=== PATIENT | male | born 1955 | race Caucasian/White ===

== ENCOUNTER 2024-08-25 13:08 | Inpatient (IN) | payer MEDICARE, BC, SELFPAY ==
[2024-08-25] VITALS (9 sets, daily range): BP systolic 73–119; BP diastolic 50–79; BMI 26.1
[2024-08-25] MEDS: NSS 1000 IV (09:47)
--- NOTE | 2024-08-25 09:47 | ED.GENMED ---
History of Present Illness
<Fadia Schroeder PA-C - Last Filed: 08/25/24 11:43>
General
Chief Complaint: Rectal Bleeding
Source: patient
Exam Limitations: none
Time Seen by Provider: 08/25/24 09:30
Nursing documentation reviewed up to this point in time: agreed with
History of Present Illness
History of Present Illness:
Patient is a 69-year-old male history hypertension, hyperlipidemia, prostate cancer presenting to the emergency department for evaluation of rectal bleeding. Patient states that about 1 AM he got up from sleep and use the bathroom and had a
significant episode of rectal bleeding. He is unsure if there was associated diarrhea. He states that the toilet bowl was filled with bright red blood. He states that since 1 AM he has had about 12 episodes of rectal bleeding. Around 6 AM�he
states that he became nauseous and had a few episodes of vomiting, one with few specks of red blood.
He became lightheaded, dizzy with standing and had to hold onto the counter to prevent himself from falling. He came to the emergency department for further evaluation.
Patient denies any associated abdominal pain, fevers, chills, dysuria or hematuria. He does endorse very mild shortness of breath
No blood thinners.
No recent travel. No history of rectal bleeding.
Review of Systems
<Fadia Schroeder PA-C - Last Filed: 08/25/24 11:43>
Review of Systems
Allergies reviewed?: Yes
All Other Systems: ROS reviewed and negative except as documented in HPI and ROS
Phy Exam
<Fadia Schroeder PA-C - Last Filed: 08/25/24 11:43>
Physical Exam
Physical Exam:
Vitals: Borderline hypotensive, otherwise vital signs able. Afebrile
General: Patient is pale appearing, no acute distress
Skin: Warm and dry, no rashes or lesions. Pale
Head: Normocephalic, atraumatic
Eyes: Sclera nonicteric. EOMs intact. No nystagmus.
Throat: Protecting airway
Neck: Normal ROM, no cervical spine tenderness, no meningismus
Cardiac: Regular rate and rhythm, no murmurs.
Pulm: Normal respiratory effort, no wheezes, rales, rhonchi heard on exam.
Abdomen: Abdomen soft. No abdominal tenderness.
Rectal: No stool in vault dried blood around rectum with some bright red blood in vault. No visualized external hemorrhoids or fissures.
Extremities: No evidence of cyanosis or edema. Palpable DP pulse bilaterally
Neuro: AAOx3. Grossly intact.
Psychiatric: Normal affect.
Course
<Fadia Schroeder PA-C - Last Filed: 08/25/24 11:43>
Orders/Labs/Results
Orders:
Orders
08/25/24 09:33
Stool Culture Urgent
[place] Source: Feces/Stool
Specimen Description:
0.9% Sodium Chloride 1000 ml [Nss] 1,000 ml IV BOLUS
08/25/24 09:34
Cardiac Monitoring- Treatment ONCE
IV Insert/Care/Rem.- Treatment PRN
Pulse Ox/cont/shift [RESP] Stat
Quantity: 1
08/25/24 09:37
Electrocardiogram (*1) Urgent
Reason for Study: Vertigo / Dizzy
EKG- Treatment ONCE
08/25/24 09:42
Type+Screen Urgent
Complete Blood Count/With Diff Urgent
Comprehensive Metabolic Panel Urgent
PTT Urgent
Prothrombin Time Urgent
08/25/24 09:54
CT Angio Abd/Pelvis w/wo IV [CT Abd/pelvis Angio W/wo Iv] Urgent
Comment:
Reason For Exam: Painless rectal bleeding
0.9% Sodium Chloride 1000 ml [Nss] 1,000 ml IV BOLUS
08/25/24 10:07
ABO2 Urgent
BBK Wristband Number:
Associate notified that ABO2 has been ordered: [id number]
Date: 08/25/24
Time: 09:48
Chartered Wealth Manager ID: [id number]
Abnormal Lab Results
08/25/24
09:42
WBC 13.5 H 10^3/uL
(4.8-10.8)
RBC 4.40 L 10^6/uL
(4.70-6.10)
Hgb 12.6 L g/dL
(13.0-18.0)
Hct 38.3 L %
(39.0-52.0)
MCHC 32.9 L g/dL
(33.0-37.0)
Abs Immat Gran (auto) 0.1 H 10^3/uL
(0-0.05)
Absolute Neuts (auto) 10.5 H 10^3/uL
(1.4-6.5)
Neutrophils % 77.7 H %
(42.2-75.2)
Lymphocytes % 16.6 L %
(20.5-51.1)
PT 15.7 H Sec
(11.4-14.6)
APTT 23.2 L Sec
(23.4-35.0)
Carbon Dioxide 18 L mmol/L
(22-30)
BUN 24 H mg/dl
(9-20)
Glucose 232 H mg/dl
(70-99)
08/25/24 09:42
08/25/24 09:42
Vital Signs
Initial and Last Documented VS:
Initial Vital Signs
Temp Pulse Resp BP Pulse Ox
98.6 F 110 16 73/50 99
08/25/24 09:25 08/25/24 09:25 08/25/24 09:25 08/25/24 09:25 08/25/24 09:25
Last Documented Vital Signs
Temp Pulse Resp BP Pulse Ox
98.6 F 82 13 107/65 100
08/25/24 09:25 08/25/24 10:15 08/25/24 10:15 08/25/24 10:00 08/25/24 10:00
<Tuan Izquierdo MD - Last Filed: 08/25/24 10:28>
Orders/Labs/Results
Orders:
Orders
08/25/24 09:33
Stool Culture Urgent
[place] Source: Feces/Stool
Specimen Description:
0.9% Sodium Chloride 1000 ml [Nss] 1,000 ml IV BOLUS
08/25/24 09:34
Cardiac Monitoring- Treatment ONCE
IV Insert/Care/Rem.- Treatment PRN
Pulse Ox/cont/shift [RESP] Stat
Quantity: 1
08/25/24 09:37
Electrocardiogram (*1) Urgent
Reason for Study: Vertigo / Dizzy
EKG- Treatment ONCE
08/25/24 09:42
Type+Screen Urgent
Complete Blood Count/With Diff Urgent
Comprehensive Metabolic Panel Urgent
PTT Urgent
Prothrombin Time Urgent
08/25/24 09:54
CT Angio Abd/Pelvis w/wo IV [CT Abd/pelvis Angio W/wo Iv] Urgent
Comment:
Reason For Exam: Painless rectal bleeding
0.9% Sodium Chloride 1000 ml [Nss] 1,000 ml IV BOLUS
08/25/24 10:07
ABO2 Urgent
BBK Wristband Number:
Associate notified that ABO2 has been ordered: [id number]
Date: 08/25/24
Time: 09:48
Chartered Wealth Manager ID: [id number]
Abnormal Lab Results
08/25/24
09:42
WBC 13.5 H 10^3/uL
(4.8-10.8)
RBC 4.40 L 10^6/uL
(4.70-6.10)
Hgb 12.6 L g/dL
(13.0-18.0)
Hct 38.3 L %
(39.0-52.0)
MCHC 32.9 L g/dL
(33.0-37.0)
Abs Immat Gran (auto) 0.1 H 10^3/uL
(0-0.05)
Absolute Neuts (auto) 10.5 H 10^3/uL
(1.4-6.5)
Neutrophils % 77.7 H %
(42.2-75.2)
Lymphocytes % 16.6 L %
(20.5-51.1)
PT 15.7 H Sec
(11.4-14.6)
APTT 23.2 L Sec
(23.4-35.0)
Carbon Dioxide 18 L mmol/L
(22-30)
BUN 24 H mg/dl
(9-20)
Glucose 232 H mg/dl
(70-99)
08/25/24 09:42
08/25/24 09:42
Vital Signs
Initial and Last Documented VS:
Initial Vital Signs
Temp Pulse Resp BP Pulse Ox
98.6 F 110 16 73/50 99
08/25/24 09:25 08/25/24 09:25 08/25/24 09:25 08/25/24 09:25 08/25/24 09:25
Last Documented Vital Signs
Temp Pulse Resp BP Pulse Ox
98.6 F 82 13 107/65 100
08/25/24 09:25 08/25/24 10:15 08/25/24 10:15 08/25/24 10:00 08/25/24 10:00
<Fadia Schroeder PA-C - Last Filed: 08/25/24 11:43>
MDM/Problems Addressed
Differential Diagnosis Includes:
Not limited to: Diverticular bleed, internal hemorrhoid, external hemorrhoid, malignancy, etc.
MDM/Problems Addressed:
69-year-old male with history as documented presenting with multiple episodes of rectal bleeding. Does report 1 episode of vomiting with streaks of bright red blood. Patient reports lightheadedness, dizziness, mild shortness of breath. No fever,
abdominal pain, urinary symptoms. Patient initially hypotensive in triage although BP of 104/79 by my assessment. He is borderline tachycardic. Patient is afebrile. Physical exam as above. Patient does appear somewhat pale. Abdomen is soft and
nontender. Rectal exam shows no stool in vault although some bright red blood. No visualized hemorrhoid or fissure. Patient is perfusing well with palpable distal pulses. Cardio/pulmonary assessment unremarkable. Differential broad at this time
although given history concerning for significant episodes of rectal bleeding�will check CTA of abdomen/pelvis. Labs, type/screen pending. Patient did sign blood consent only for lifesaving measures. EKG obtained in triage shows normal sinus
rhythm without any acute signs of ischemia. Will closely monitor patient and reassess.
Chronic conditions affecting care:
Hypertension, hyperlipidemia, history of prostate cancer
Acute Exacerbation and/or Progression of Chronic Illness:
N/A
<Fadia Schroeder PA-C - Last Filed: 08/25/24 11:43>
*Radiology
Radiology exam reviewed: preliminary read by ED provider and radiology read reviewed (No active GI hemorrhage or other acute abnormalities)
*Pulse Oximetry
Patient hypoxic: no
*EKG
Interpreted by ED Provider?: Yes
EKG Intrepretation Date: 08/25/24
Interpretation: normal
Comparison EKG: changes noted
Heart Rate: 86
Rate: normal
Rhythm: sinus
Kennedy: normal axis
Interval: normal interval
QRS Pattern: normal QRS
Ischemia: no ischemia
*Senior Systems Architect Interpretation
Rate: normal
Interpretation: normal
Heart Rate: 94
Rhythm: sinus
*Critical Care Note
Total Time (30-74mins, 75-104mins- exclusive of procedures): Not Applicable
<Fadia Schroeder PA-C - Last Filed: 08/25/24 11:43>
Patient Management
Discussion with other providers: Hospitalist
Escalation/DeEscalation of care consider admission/obs:
Admit for hemoglobin trending/further monitoring
<Fadia Schroeder PA-C - Last Filed: 08/25/24 11:43>
Update Note
Update Note:
Update 10:21 AM: Labs noted. Hemoglobin of 12.6. Mild leukocytosis of 13.5. Elevated BUN and mild metabolic acidosis likely secondary to GI losses.
Update 11:28 AM: CT report reviewed. No active GI hemorrhage or other acute findings. Given patient history of greater than 10 episodes of bright red blood per rectum this morning and drop in hemoglobin from baseline�will admit patient for
hemoglobin trending/further monitoring. Patient accepted to hospitalist service in stable condition. Case seen with attending physician.
ED Attending Note
<Fadia Schroeder PA-C - Last Filed: 08/25/24 11:43>
-
Portions of this chart may have been created with voice recognition software.� Occasional wrong word or��sound alike� substitutions may have occurred due to the inherent limitations of voice recognition software.
<Tuan Izquierdo MD - Last Filed: 08/25/24 10:28>
ED Attending Note
Patient seen and examined by attending physician: Yes
ED Attending Note:
I have seen and evaluated the patient with a [id number] encounter. I have spoken to the advance practicer provider and involved in the medical history, the physical exam, medical decision making.
Evaluation and management service: agree unless noted differently below.
Results interpretation: agree unless noted differently below.
Focused HPI: 69-year-old male with a past medical history of hypertension, hyperlipidemia, prostate cancer who presents to the emergency room with his for evaluation of rectal bleeding. Patient reports that he was in his normal state of health
last night and then around 1 AM he felt that he had to have a bowel movement. He says he passed liquid stool that was essentially grossly bloody. He says that he has had roughly 10 episodes of bright red blood per rectum since. He had some nausea
and a couple episodes of nonbloody emesis. Came to the emergency room for assessment. Denies any significant abdominal pain. He says he has had some dizziness/lightheadedness. No chest pain or dyspnea. He denies being on blood thinners. He
denies similar symptoms before. He says his last colonoscopy was roughly 10 years ago he says he previously was told that he had diverticulosis and colonic polyp that was resected.
Physical exam: Awake alert not in distress. Tachycardic and hypertensive in triage�after IV fluids blood pressure improved to 107/65 with heart rate in the 80s. Rest of vitals normal. Slightly pale appearing. Rectal exam by CARLOS showed gross blood
in the rectal vault.
Medical Decision Makin-year-old male presents after multiple episodes of bright red blood per rectum over the past 10 hours. He is not on blood thinners. Hypotensive and tachycardic improved with fluids. Placed large-bore IV labs sent off
including a CBC and a CMP, coags, type and screen. Patient was consented for blood transfusion�he did note that he would only agree to blood transfusion in the case of life-threatening bleeding. Will plan for a CTA to rule out brisk bleed.
Reassess after the above.
Labs reviewed: CBC does show anemia of 12.6 which is roughly 2 point drop from his baseline. Platelets acceptable. CMP shows elevated BUN, mild metabolic acidosis could be from GI losses. Hyperglycemic. Awaiting CTA will plan for admission for
trending of hemoglobin and bleeding.
Discharge Plan
Departure
Patient Disposition: Admit
Date of Disposition: 08/25/24
Time of Disposition: 11:28
Presentation/result/management discussed w/ accepting MD/DO: Hospitalist
Discharge Problem:
Rectal bleeding
Prescriptions:
No Action
tamsulosin [Flomax] 0.4 mg Capsule
0.4 mg PO DAILY
ascorbic acid (vitamin C) [Vitamin C] 1,000 mg Tablet
1,000 mg PO DAILY
acetaminophen [Tylenol] 325 mg Tablet
650 mg PO Q4HPRN PRN (Reason: mild pain)
Tums 300 mg (750 mg) Tablet,Chewable
900 mg PO BIDPRN PRN (Reason: gerd)
famotidine [Pepcid] 20 mg Tablet
40 mg PO HS
calcium polycarbophil [FiberCon] 625 mg Tablet
625 mg PO DAILY
bismuth subsalicylate [Pepto-Bismol] 262 mg Tablet,Chewable
2 tab PO DAILYPRN PRN (Reason: gerd)
losartan 100 mg Tablet
100 mg PO DAILY
rosuvastatin [Crestor] 5 mg Tablet
5 mg PO DAILY
Visbiome 112.5 billion cell Capsule
1 cap PO DAILY
cyanocobalamin (vitamin B-12) 3,000 mcg Capsule
3,000 mcg PO DAILY
Referrals:
Henok Hanson MD [Family Provider] -
Interventions
Interventions:
*Risk Screen - Suicide Last Done: 08/25/24 09:40
*General Assessment Last Done: 08/25/24 09:40
*Neglect/Abuse Screening Last Done: 08/25/24 09:40
ED- Fall Risk Assessment Last Done: 08/25/24 09:40
*ED COVID-19 Vaccine History Last Done: 08/25/24 11:07
AD-Uzwqli-Hwniztmltm Assessment Last Done: 08/25/24 09:45
ED- Cardiac Assessment Last Done: 08/25/24 09:40
ED- Pulmonary Assessment Last Done: 08/25/24 09:40
Discharge Date and Time
Print Language: BHUTANESE
[2024-08-25 09:49] LABS: % Basophils 0.4 % (0-2); % Eosinophils 0.4 % (0-6); % Immature Granulocytes 0.5 % (0-0.5); % Lymphocytes 16.6 % (20.5-51.1); % Monocytes 4.4 % (1.7-9.3); % Neutrophils 77.7 % (42.2-75.2); Absolute Basophils 0.1 10^3/uL (0-0.2); Absolute Eosinophils 0.1 10^3/uL (0-0.7); Absolute Immature Granulocytes 0.1 10^3/uL (0-0.05); Absolute Lymphocytes 2.2 10^3/uL (1.2-3.4); Absolute Monocytes 0.6 10^3/uL (0.1-0.6); Absolute Neutrophils 10.5 10^3/uL (1.4-6.5); Hematocrit 38.3 % (39.0-52.0); Hemoglobin 12.6 g/dL (13.0-18.0); Mean Corp Hgb Conc. 32.9 g/dL (33.0-37.0); Mean Corpuscular Hgb 28.6 pg (27.0-31.0); Mean Platelet Volume 9.8 fL (7.4-10.4); Nucleated Red Blood Cells % 0 % (-); Platelet Count 199 10^3/uL (130-400); Red Cell Dist. Width 12.5 % (11.5-14.5); White Blood Cell Count 13.5 10^3/uL (4.8-10.8)
[2024-08-25 09:59] LABS: INR 1.22; PT 15.7 Sec (11.4-14.6)
[2024-08-25 10:00] LABS: APTT 23.2 Sec (23.4-35.0)
[2024-08-25 10:10] LABS: ALT (SGPT) 27 U/L (0-50); AST (SGOT) 21 U/L (17-59); Albumin 4.1 g/dl (3.5-5.0); Alkaline Phosphatase 59 U/L (38-126); Blood Urea Nitrogen 24 mg/dl (9-20); Calcium 9.9 mg/dl (8.4-10.2); Carbon Dioxide 18 mmol/L (22-30); Chloride 105 mmol/L (98-107); Glucose 232 mg/dl (70-99); Potassium 4.2 mmol/L (3.5-5.1); Sodium 140 mmol/L (135-145); Total Bilirubin 0.4 mg/dl (0.2-1.3); Total Protein 6.8 g/dl (6.3-8.2); eGFR > 60.00
--- NOTE | 2024-08-25 12:38 | HPS.HSE ---
Family Physician
-
Family Physician: Henok Hanson
Chief Complaint
-
rectal bleeding
History of Present Illness
69-year-old male with hypertension, hyperlipidemia, GERD, allergic rhinitis, H/O prostate cancer presenting to the hospital today with a complaint of rectal bleeding. Symptoms started near 1 AM overnight where he awoke from sleep to use the
restroom and had an episode of rectal bleeding. Unclear if there was diarrhea at that time but he states the toilet bowl was filled with bright red blood. Since 1 AM he has had roughly 12 episodes of rectal bleeding. Around 6 AM he became
nauseous with vomiting, states his vomitus had a few specks of blood. Developed lightheadedness and dizziness with standing which prompted him to come to the emergency department for further evaluation. Denies abdomen pain, fevers or chills,
urinary issues. Does not use blood thinners. He has had 4 previous colonoscopies for colon cancer screening, has had polyps seen s/p polypectomy and biopsy. Upon arrival to the ED was slightly tachycardic with soft blood pressure that improved
following IV fluids, otherwise stable and afebrile on room air. Labs with WBC 13.5, hemoglobin 12.6, PT 15.7, INR 1.22, APTT 23.2, BUN 24, bicarb 18. CT A/P with and without contrast showed probable renal cyst, hepatic steatosis, diverticulosis
without diverticulitis, and no obvious source of acute GI hemorrhage.
Medical History
Past Medical History
Past Medical History: Reports GERD, HTN and Hypercholesterolemia
Past Surgical History: Reports Orthopedic (Per surgery, knee replacement) and Other (Colonoscopy with biopsy, prostate biopsy x 2)
Social History
Tobacco: Non-smoker
Alcohol: Occasional
Drug: None
Family History
Family History: Not pertinent and Other (Father: Severe aortic stenosis, prostate cancer)
Allergies / Home Medications
Allergies reflects when Allergies were last updated in [employer].
Home Medications with original date entered in [employer]
Allergy/Medication List:
Allergies
Allergy/AdvReac Type Severity Reaction Status Date / Time
Penicillins Allergy Unknown Verified 08/25/24 09:30
Home Medications
Lactobac no.2-Bifidobac no.1-S. thermo 112.5 billion cell capsule (Visbiome) 1 cap PO DAILY 08/25/24
acetaminophen 325 mg tablet (Tylenol) 650 mg PO Q4HPRN PRN mild pain 08/25/24
ascorbic acid (vitamin C) 1,000 mg tablet (Vitamin C) 1,000 mg PO DAILY 08/25/24
bismuth subsalicylate 262 mg chewable tablet (Pepto-Bismol) 2 tab PO DAILYPRN PRN gerd 08/25/24
calcium carbonate (Tums) 900 mg PO BIDPRN PRN gerd 08/25/24
calcium polycarbophil 625 mg tablet (FiberCon) 625 mg PO DAILY 08/25/24
cyanocobalamin (vitamin B-12) 3,000 mcg capsule 3,000 mcg PO DAILY 08/25/24
famotidine 20 mg tablet (Pepcid) 40 mg PO HS 08/25/24
losartan 100 mg tablet 100 mg PO DAILY 08/25/24
rosuvastatin 5 mg tablet (Crestor) 5 mg PO DAILY 08/25/24
tamsulosin 0.4 mg capsule (Flomax) 0.4 mg PO DAILY 08/25/24
Review of Systems
-
History Source: Patient
A 12 point ROS was completed and negative except as noted: Yes
Constitutional: Reports No Symptoms
EENT: Reports No Symptoms
Respiratory: Reports No Symptoms
Cardiac: Reports No Symptoms
Abdomen/GI: Reports See HPI
: Reports No Symptoms
Musculoskeletal: Reports No Symptoms
Skin: Reports No Symptoms
Neurological: Reports No Symptoms
Endocrine: Reports No Symptoms
Hematologic/Lymphatic: Reports No Symptoms
Psych: Reports No Symptoms
Physical Exam
Vital Signs
Vital Signs
Temp Pulse Resp BP Pulse Ox
98.6 F 95 18 107/65 100
08/25/24 09:25 08/25/24 11:45 08/25/24 11:45 08/25/24 10:00 08/25/24 11:45
Physical Exam
General: Well Nourished, No Apparent Distress and Comfortable
HEENT: NormoCephalic, Anicteric, Moist mucous membranes and Atraumatic
Respiratory: Clear and Non Labored Respirations; No Accessory Resp Muscle Use
Cardiac: S1/S2 and Regular Rhythm; No Murmur, Rub, Gallop or Peripheral Edema
GI: Soft, Non Tender, Non Distended and Normal Bowel Sounds
Musculoskeletal: Clubbing, No Clubbing and Cyanosis
Skin: Warm and Dry; No Rash or Jaundice
Neuro: AO x 3, Nonfocal/grossly intact and Cranial Nerves Intact
Psych: Calm
Laboratory Results
-
08/25/24 09:42
08/25/24 09:42
Laboratory Results
PT 15.7 Sec (11.4-14.6) H 08/25/24 09:42
INR 1.22 08/25/24 09:42
APTT 23.2 Sec (23.4-35.0) L 08/25/24 09:42
Total Bilirubin 0.4 mg/dl (0.2-1.3) 08/25/24 09:42
AST 21 U/L (17-59) 08/25/24 09:42
ALT 27 U/L (0-50) 08/25/24 09:42
Alkaline Phosphatase 59 U/L (38-126) 08/25/24 09:42
Data Reviewed
-
Lab Data: Labs Reviewed by me, Discussed with Physician and Discussed with Patient
Impression/Plan
-
#Rectal bleeding
#Possible hematemesis
-Differential diagnosis include diverticular bleed; less likely brisk UGIB though cannot R/O
-Presented with rectal bleeding that started overnight, has recurred x 12
-Developed nausea and vomiting, states there may have been specks of blood in the vomitus
-Was initially hypotensive and tachycardic though improved readily with IV fluids
-Hemoglobin 12.6 on arrival, no recent records for hemoglobin baseline
-Type and screen, blood consent obtained to the patient only once for 'life-saving measures'
Plan
-Will start IV PPI twice daily for now due to possible hematemesis
-Continue to trend H/H, repeat this afternoon
-Maintain 2 large-bore IVs, active T&S, NPO status
-Avoid chemical DVT prophylaxis
-Continue with supportive IV fluids for now
-GI consult
#Leukocytosis
-No fevers or infectious symptoms at this time
-Suspect this is reactive to etiology of his bleeding
-Will trend CBC and temperature curve, defer against antibiotics for now
-Consider stool cultures if GI deems necessary
#Hypertension
-Home medications include losartan 100 mg
-Will hold losartan for now as BP was soft on arrival
#GERD/dyspepsia
-Home medications include bismuth, calcium carbonate, famotidine
-No known history of erosive esophagitis or Sewell's esophagus
-Will escalate PPI to twice daily IV for now as above
-States he has symptoms of GERD fairly consistently
-Would benefit from daily PPI at NH
#Prostate cancer
-Patient states he is currently following with urology, managed with watchful waiting
-Has not previously received chemotherapy or radiation
-Remains on tamsulosin
DVT prophylaxis: SCDs
Diet: NPO pending GI
CODE STATUS: Full code
I will be admitting Erick Ford to [facility] for GI bleeding of unclear origin. He is at high risk for ongoing morbidity will require intensive monitoring of his CBC and possible endoscopic intervention by gastroenterology. I have communicated
with the ED provider, kitchen runner in order to facilitate care for this patient.
--- NOTE | 2024-08-25 13:09 | CON.GI ---
Consultation
-
Date/Time Consultation Requested: 08/25/24 12.44 pm
Date/Time Consultation Performed: 08/25/24 1.10 pm
Requesting Provider: Quinn Escamilla DO
Performing Provider: Skyla Plascencia MD
Reason for Consultation: Rectal bleeding
Medical History
Chief Complaint / HPI
Chief Complaint: Rectal bleeding
History of Present Illness:
The patient is a 69 year old male with a PMH of hypertension, hyperlipidemia, GERD, allergic rhinitis, H/O prostate cancer who presented to ER this morning complaining from rectal bleeding. He reported that he had bloody stool movements starting
from this morning around 1.0 am and he had 10-12 episodes of rectal bleeding until 6.00 am. He reported that the color of his bowel movement was red-fresh colored and denied black/tarry stools. Additionally, the patient reported having nausea due
feeling lightheadedness and he vomited 3 times. Reported that his vomitus had a few specks of blood. The patient denies abdominal pain, previous similar episodes, chronic bowel disease but reports a possible lactose intolerance with daily products.
He denies taking aspirin, NSAI and any other blood thinner medication. He reported that he had 4 previous colonoscopies for colon cancer screening at the age of [age], 61 and has had polyps seen s/p polypectomy and diverticulosis.
Past Medical History
Past Medical History: GERD, HTN, Hypercholesterolemia and Other (prostate cancer no radiotherapy )
Past Surgical History: Other (orthopedic(knee arthroplasty, wrist surgery) )
Social History
Tobacco: Non-Smoker
Alcohol: Occasional
Drug: None
Personal:
Living: With Family
Employment: Retired
Family History
Family History: Reviewed & Not Pertinent
Allergies / Home Medications
Allergy/AdvReac Type Severity Reaction Status Date / Time
Penicillins Allergy Unknown Verified 08/25/24 09:30
�Medication �Instructions �Recorded
Lactobac no.2-Bifidobac no.1-S. 1 cap PO DAILY 08/25/24
thermo 112.5 billion cell capsule
(Visbiome)
acetaminophen 325 mg tablet 650 mg PO Q4HPRN PRN mild pain 08/25/24
(Tylenol)
ascorbic acid (vitamin C) 1,000 mg 1,000 mg PO DAILY 08/25/24
tablet (Vitamin C)
bismuth subsalicylate 262 mg 2 tab PO DAILYPRN PRN gerd 08/25/24
chewable tablet (Pepto-Bismol)
calcium carbonate (Tums) 900 mg PO BIDPRN PRN gerd 08/25/24
calcium polycarbophil 625 mg 625 mg PO DAILY 08/25/24
tablet (FiberCon)
cyanocobalamin (vitamin B-12) 3,000 mcg PO DAILY 08/25/24
3,000 mcg capsule
famotidine 20 mg tablet (Pepcid) 40 mg PO HS 08/25/24
losartan 100 mg tablet 100 mg PO DAILY 08/25/24
rosuvastatin 5 mg tablet (Crestor) 5 mg PO DAILY 08/25/24
tamsulosin 0.4 mg capsule (Flomax) 0.4 mg PO DAILY 08/25/24
Review of Systems
-
History Source: Patient
Constitutional: Reports No Symptoms
EENT: Reports No Symptoms
Respiratory: Reports No Symptoms
Cardiac: Reports No Symptoms
Abdomen/GI: Reports Bloody Stools
: Reports No Symptoms
Musculoskeletal: Reports No Symptoms
Skin: Reports No Symptoms
Neurological: Reports No Symptoms
Vital Signs
Temp Pulse Resp BP Pulse Ox
98.6 F 95 18 107/65 100
08/25/24 09:25 08/25/24 11:45 08/25/24 11:45 08/25/24 10:00 08/25/24 11:45
Physical Exam
Exam
General: Well Developed, Well Nourished and No Apparent Distress
HEENT: Normocephalic and Anicteric
Respiratory: Clear
Cardiac: S1/S2 and Regular Rhythm
GI: Soft, Non Tender, Non Distended and Other
Musculoskeletal: No Clubbing, No Cyanosis and No Edema
Skin: Warm
Neuro: Awake, Alert, Oriented and AO x 3
Psych: Calm
Results
WBC 13.5 10^3/uL (4.8-10.8) H 08/25/24 09:42
Hgb 12.6 g/dL (13.0-18.0) L 08/25/24 09:42
Hct 38.3 % (39.0-52.0) L 08/25/24 09:
MCV 87.0 fL (80.0-94.0) 08/25/24 09:42
Plt Count 199 10^3/uL (130-400) 08/25/24 09:
Absolute Neuts (auto) 10.5 10^3/uL (1.4-6.5) H 08/25/24 09:42
PT 15.7 Sec (11.4-14.6) H 08/25/24 09:42
INR 1.22 08/25/24:42
APTT 23.2 Sec (23.4-35.0) L 08/25/24 09:42
Sodium 140 mmol/L (135-145) 08/25/24 09:
Potassium 4.2 mmol/L (3.5-5.1) 08/25/24 09:42
Chloride 105 mmol/L (98-107) 08/25/24 09:42
Carbon Dioxide 18 mmol/L (22-30) L 08/25/24 09:42
BUN 24 mg/dl (9-20) H 08/25/24 09:42
Creatinine 1.0 mg/dL (0.7-1.3) 08/25/24 09:42
Calcium 9.9 mg/dl (8.4-10.2) 08/25/24 09:
Total Bilirubin 0.4 mg/dl (0.2-1.3) 08/25/24 09:42
AST 21 U/L (17-59) 08/25/24 09:42
ALT 27 U/L (0-50) 08/25/24 09:42
Alkaline Phosphatase 59 U/L (38-126) 08/25/24 09:42
Diagnostic Image Results:
Abd/Pelvis CTA 08/25/24
IMPRESSION:
1. No acute gastrointestinal hemorrhage is identified at CT.
2. Hepatic fatty infiltration.
3. Right kidney 2.2 cm hyperdense cyst as above, benign. Bilateral probable renal cysts as above.
4. Diverticulosis without diverticulitis.
5. Bilateral fat-containing inguinal hernias.
Prior GI Procedures:
EGD: Not known/ No record was found. Patient denies any previous EGD proceudure.
Colonoscopy:Patient had 4 colonoscopy in the past in [facility] with Dr Brennan
Assessment / Plan
-
Impression: The patient is a 69 year old male who presented to ER complaining from rectal bleeding and feeling lightheadedness. The patient had 10-12 episodes of red-fresh colored liquid bowel movements since 1.00 am until 6.00 am this morning. He
also reported that vomited 3 times and his vomit vomitus had a few specks of blood. Reports having GERD for a long time and taking 2 pills of famotidine 20 mg before bedtime with Tums to prevent burning sensation. The patient denies a similar
previous episode of GI bleeding. Denies taking any NSAI, aspirin or blood thinner. Denies any fever, chills, diarrhea. Denies abdominal pain but reports feeling discomfort on his lower abdominal area. He had 4 colonoscopy in the past and the last
colonoscopy was about 9 years ago without any significant finding expect diverticulosis. He denied any EGD procedure in the past. He was obtained an abdominal CT at ER admission which showed 'Diverticulosis without diverticulitis.'
Assessment/Plan:
#Hematochezia likely from diverticulosis
-Last BM around 6.15 am
-Hgb 12.6 on 08/25/24 and 14.3 on 12/17/18 : No recent hgb result to compare
-Maintain 2 large-bore peripheral gauge IVs
-Hgb follow up Q8H
-Monitor for now
-Started on clear liquid diet
-CT Abd/pelvis Angio: No evidence of active bleeding /shows diverticulosis
#Hematemesis? less likely upper GI bleeding
- Denies any active bleeding and reports a few specks of blood with his vomit
-Can not rule out possibility of Upper GI bleeding
-Hx of GERD/on famotidine
-Continue PPI IV BID
-
-
Thank you for consultation and allowing me to participate in the patient's care. Please call the transportation worker GI physician during the after hours with any questions or concerns.
[2024-08-25] MEDS: PROTONIX IV 80 MG IV (13:30)
[2024-08-25] MEDS: NSS (PRESERVATIVE FREE) 20 ML IV (13:30)
[2024-08-25] MEDS: LR 1000 IV (14:15)
[2024-08-25] MEDS: PROTONIX IV 40 MG IV (20:59)
[2024-08-25] MEDS: NSS (PRESERVATIVE FREE) 10 ML IV (21:00)
[2024-08-25] MEDS: PEPCID 40 MG PO (21:57)
[2024-08-25 23:17] LABS: Hematocrit 28.6 % (39.0-52.0); Hemoglobin 9.8 g/dL (13.0-18.0); Mean Corp Hgb Conc. 34.3 g/dL (33.0-37.0); Mean Corpuscular Hgb 29.3 pg (27.0-31.0); Mean Corpuscular Volume 85.4 fL (80.0-94.0); Platelet Count 154 10^3/uL (130-400); Red Blood Cell Count 3.35 10^6/uL (4.70-6.10); Red Cell Dist. Width 12.5 % (11.5-14.5); White Blood Cell Count 10.2 10^3/uL (4.8-10.8)
--- NOTE | 2024-08-26 | PTCARENOTE ---
Patient with large bloody bowel movement, blood pressure noted, repeat CBC completed, patient complains of dizziness, notified house [employer] order received
[2024-08-26 00:24] VITALS: BP 84/51
[2024-08-26 00:48] VITALS: BP 109/57
[2024-08-26 04:17] VITALS: BP 106/64
[2024-08-26] MEDS: LR 1000 IV (04:18)
[2024-08-26 05:43] LABS: % Basophils 0.2 % (0-2); % Eosinophils 0.5 % (0-6); % Immature Granulocytes 0.3 % (0-0.5); Absolute Lymphocytes 2.4 10^3/uL (1.2-3.4); Absolute Monocytes 0.8 10^3/uL (0.1-0.6); Absolute Neutrophils 5.3 10^3/uL (1.4-6.5); Hematocrit 30.4 % (39.0-52.0); Hemoglobin 9.9 g/dL (13.0-18.0); Mean Corp Hgb Conc. 32.6 g/dL (33.0-37.0); Mean Corpuscular Hgb 28.5 pg (27.0-31.0); Mean Corpuscular Volume 87.6 fL (80.0-94.0); Nucleated Red Blood Cells % 0 % (-); Platelet Count 139 10^3/uL (130-400); Red Blood Cell Count 3.47 10^6/uL (4.70-6.10); White Blood Cell Count 8.6 10^3/uL (4.8-10.8)
[2024-08-26 06:18] LABS: Blood Urea Nitrogen 29 mg/dl (9-20); Calcium 8.6 mg/dl (8.4-10.2); Carbon Dioxide 20 mmol/L (22-30); Chloride 108 mmol/L (98-107); Estimated Creatinine Clearance 93 ml/min; Glucose 127 mg/dl (70-99); Magnesium 1.7 mg/dl (1.6-2.3); Sodium 138 mmol/L (135-145); eGFR > 60.00
[2024-08-26 07:25] VITALS: BP 112/58
[2024-08-26] MEDS: FLOMAX 0.4 MG PO (08:17)
[2024-08-26] MEDS: NSS (PRESERVATIVE FREE) 10 ML IV ×2 (08:17→21:27)
[2024-08-26] MEDS: CRESTOR 5 MG PO (08:17)
[2024-08-26] MEDS: PROTONIX IV 40 MG IV ×2 (08:17→21:27)
--- NOTE | 2024-08-26 10:43 | W.PN.GI.CBS2 ---
Today's Communication / Plan
-
colonoscopy for tomorrow
Assessment / Plan
-
Impression: The patient is a 69 year old male who presented to ER complaining from rectal bleeding and feeling lightheadedness. The patient had 10-12 episodes of red-fresh colored liquid bowel movements at home on 08/25/24 before his hospital
admission during the midnight. He also reported that vomited 3 times and his vomit vomitus had a few specks of blood on the same day. Reported having GERD for a long time and taking 2 pills of famotidine 20 mg before bedtime with Tums to prevent
burning sensation. The patient denies a similar previous episode of GI bleeding. Denies taking any NSAI, aspirin or blood thinner. Denies any fever, chills, diarrhea. Denies abdominal pain but reports feeling discomfort on his lower abdominal
area. He had 4 colonoscopy in the past and the last colonoscopy was about 9 years ago without any significant finding expect diverticulosis. He denied any EGD procedure in the past. He was obtained an abdominal CT at ER admission which showed
'Diverticulosis without diverticulitis.' Hgb level of the patient was found 12.6 at the admission and follow up level showed 9.8. The patient had one episode of bloody BM yesterday on 08/25 and he started to feel dizzy and his BP was on the lower
side. Therefore he was given 1 U RBC transfusion. Follow hgb level resulted as 9.9 and the patient had another episode of bloody BM this morning on .
Assessment/Plan:
#Hematochezia likely from diverticulosis
-Had 2 bloody BM since admission and was given 1 U of RBC
-Hgb 12.6 on 08/25/24 and 9.9 after 1 U RBC transfusion:One bloody BM after transfusion
-Maintain 2 large-bore peripheral gauge IVs
-Hgb follow up Q8H
-Started on clear liquid diet
-CT Abd/pelvis Angio: No evidence of active bleeding /shows diverticulosis
-colonoscopy is planning for ongoing bloody BM for tomorrow
#Hematemesis? less likely upper GI bleeding
- Denies any active bleeding and reports a few specks of blood with his vomit before admission
-Can not rule out possibility of Upper GI bleeding
-Hx of GERD/on famotidine
-Continue PPI IV BID
Subjective
Subjective
Date of Service: August 26, 2024
The patient was seen in his bed reporting feeling better but reported 2 bloody bowel movements since admission to the hospital. Last BM was this morning and the BM was liquid and red-fresh colored.
Objective
Data Reviewed
Laboratory Data:
Laboratory Results
08/26/24 05:31
Laboratory Results
PT 15.7 Sec (11.4-14.6) H 08/25/24 09:42
INR 1.22 08/25/24 09:42
APTT 23.2 Sec (23.4-35.0) L 08/25/24 09:42
Magnesium 1.7 mg/dl (1.6-2.3) 08/26/24 05:31
Total Bilirubin 0.4 mg/dl (0.2-1.3) 08/25/24 09:42
AST 21 U/L (17-59) 08/25/24 09:42
ALT 27 U/L (0-50) 08/25/24 09:42
Alkaline Phosphatase 59 U/L (38-126) 08/25/24 09:42
Vital Signs and I&O:
Vital Signs
Temp Pulse Resp BP Pulse Ox
98.1 F 69 18 112/58 97
08/26/24 07:25 08/26/24 07:25 08/26/24 07:25 08/26/24 07:25 08/26/24 07:25
I&O
08/25/24 08/26/24 08/27/24
06:59 06:59 06:59
Intake Total 2420 / 2420
Output Total 150 / 150
Balance 2270 / 2270
Physical Exam
Physical Exam
HEENT: Anicteric and Moist mucous membranes
Cardiology: Normal Sinus Rhythm, S1 and S2
Pulmonary: Clear
GI: Soft, Non Distended and Non Tender
Extremities: No Edema and Warm
Neuro: Non Focal
--- NOTE | 2024-08-26 11:09 | W.PN.HOSP.TC ---
Today's Communication/Plan
-
clears for now
IVF
PPI
Trend h/h
monitor stools
Assessment / Plan
Assessment / Plan
#Rectal bleeding
#Possible hematemesis
#Acute blood loss anemia due to GI bleeding
-Differential diagnosis include diverticular bleed; less likely brisk UGIB though cannot R/O
-Developed nausea and vomiting, states there may have been specks of blood in the vomitus
-Was initially hypotensive and tachycardic though improved readily with IV fluids
-Hemoglobin 12.6 on arrival, no recent records for hemoglobin baseline
-Type and screen, blood consent obtained to the patient only once for 'life-saving measures'
Plan
-Will start IV PPI twice daily for now due to possible hematemesis
-Continue to trend H/H, repeat this afternoon. s/p 1u of PRBC so far
-Maintain 2 large-bore IVs, active T&S,
-Avoid chemical DVT prophylaxis
-cont with clears. If repeat episode of bleeding then plan might be for inpatient C-scope.
-GI consult
#Leukocytosis
-No fevers or infectious symptoms at this time
-Suspect this is reactive to etiology of his bleeding
-Will trend CBC and temperature curve, defer against antibiotics for now
#Hypertension Primary
-Home medications include losartan 100 mg
-Will hold losartan for now as BP was soft on arrival
#GERD/dyspepsia
-Home medications include bismuth, calcium carbonate, famotidine
-No known history of erosive esophagitis or Sewell's esophagus
-Will escalate PPI to twice daily IV for now as above
-States he has symptoms of GERD fairly consistently
-Would benefit from daily PPI at [place]
#Prostate cancer
-Patient states he is currently following with urology, managed with watchful waiting
-Has not previously received chemotherapy or radiation
-Remains on tamsulosin
DVT prophylaxis: SCDs
Anticipated Discharge: 24 - 48 hours
Subjective/Interval History
-
Date of Service: August 26, 2024
had episode of BRBPR x 2
received PRBC overnight
no abd pain or nausea or vomiting or lightheadness
Objective Data
-
Labs:
Laboratory Results
08/25/24 08/26/24 08/26/24
23:00 05:31 12:00
WBC 10.2 8.6
Hgb 9.8 L D 9.9 L Pending
Hct 28.6 L 30.4 L Pending
Plt Count 154 D 139
Sodium 138
Potassium 4.0
Chloride 108 H
Carbon Dioxide 20 L
BUN 29 H
Creatinine 0.8
Glucose 127 H
Calcium 8.6
Vital Signs:
Vital Signs
Temp Pulse Resp BP Pulse Ox
98.1 F 69 18 112/58 97
08/26/24 07:25 08/26/24 07:25 08/26/24 07:25 08/26/24 07:25 08/26/24 07:25
I&O
08/25/24 08/26/24 08/27/24
06:59 06:59 06:59
Intake Total 2420 / 2420
Output Total 150 / 150
Balance 2270 / 2270
Physical Exam
-
General: Well Developed and No Apparent Distress
HEENT: Normocephalic, Atraumatic and Moist Mucous Membranes
Respiratory: Clear to Auscultation
Cardiac: Regular Rhythm and S1/S2; Negative Murmur, Rub or Gallop
GI: Soft, Nontender, Nondistended and Normal Bowel Sounds; Negative Organomegaly
Rectal: Deferred by Provider
Musculoskeletal: No Clubbing, No Cyanosis and No Edema
Skin: Negative Rash
Neuro: Awake, Alert, AO x 3, No Motor Deficits and Nonfocal/Grossly Intact
Psych: Calm
Data Reviewed
-
Total Time Spent with Patient (in minutes): 52
[2024-08-26 12:19] LABS: Hematocrit 29.9 % (39.0-52.0)
--- NOTE | 2024-08-26 12:42 | CM ---
CM met with pt and spouse bedside
They reside in a [facility] [facility], 14 steps to 2nd floor
Pt is independent with his ADLs, no ADs, drives+
Has crutches from a prior injury
Denies financial insecurities
Rx coverage through [employer], card on chart
PCP- Henok Hanson
Rx- [facility]
Pt is independent throughout room
Anticipate no dc needs
Discharge Disposition- home, no needs anticipated
--- NOTE | 2024-08-26 15:20 | W.PN.UPDATE ---
Update Note
Progress Note Update
Return to patient's room to discuss whether or not to proceed with colonoscopy tomorrow. Since this morning, when he is urinated he has passed small amount of clots which he states are from the rectum, no bowel movements. His hemoglobin has
improved to 10. He is still reluctant to proceed as he does not want to have to repeat a screening colonoscopy as an outpatient as I will be unable to remove any polyps if I see them on his colonoscopy, is removing a large polyp could cause
bleeding, further confusing the picture of the bleeding source. I suspect that his bleeding has slowed down and has probably stopped, passing some old clots. Typically, just prepping for the colonoscopy will stop the bleeding.
Plan to have patient consume half a bowel prep with hopes that this will completely clear him out, and stop any ongoing bleeding and clean out old blood from his colon. If he continues to have large-volume hematochezia despite this have a bowel
prep, we will go onto complete a full bowel prep and plan for colonoscopy tomorrow.
[2024-08-26 15:33] VITALS: BP 134/66
[2024-08-26] MEDS: NULYTELY SOLUTION 2 LITERS PO ×2 (16:52→21:27)
[2024-08-26] MEDS: PEPCID 40 MG PO (21:27)
[2024-08-26 23:06] VITALS: BP 116/60
[2024-08-27] VITALS (7 sets, daily range): BP systolic 12–149; BP diastolic 61–72
[2024-08-27 07:40] LABS: % Basophils 0.2 % (0-2); % Eosinophils 0.2 % (0-6); % Immature Granulocytes 0.5 % (0-0.5); % Lymphocytes 31.9 % (20.5-51.1); % Monocytes 6.5 % (1.7-9.3); % Neutrophils 60.7 % (42.2-75.2); Absolute Lymphocytes 2.7 10^3/uL (1.2-3.4); Absolute Monocytes 0.6 10^3/uL (0.1-0.6); Absolute Neutrophils 5.2 10^3/uL (1.4-6.5); Hematocrit 21.9 % (39.0-52.0); Hemoglobin 7.5 g/dL (13.0-18.0); Mean Corp Hgb Conc. 34.2 g/dL (33.0-37.0); Mean Corpuscular Hgb 30.1 pg (27.0-31.0); Mean Platelet Volume 10.4 fL (7.4-10.4); Nucleated Red Blood Cells % 0 % (-); Platelet Count 122 10^3/uL (130-400); Red Blood Cell Count 2.49 10^6/uL (4.70-6.10); Red Cell Dist. Width 12.9 % (11.5-14.5); White Blood Cell Count 8.5 10^3/uL (4.8-10.8)
[2024-08-27 07:51] LABS: Blood Urea Nitrogen 19 mg/dl (9-20); Carbon Dioxide 22 mmol/L (22-30); Chloride 103 mmol/L (98-107); Estimated Creatinine Clearance 93 ml/min; Glucose 122 mg/dl (70-99); Potassium 4.2 mmol/L (3.5-5.1); Sodium 134 mmol/L (135-145); eGFR > 60.00
[2024-08-27] MEDS: PROTONIX IV 40 MG IV ×2 (08:17→21:06)
[2024-08-27] MEDS: CRESTOR 5 MG PO (08:17)
[2024-08-27] MEDS: NSS (PRESERVATIVE FREE) 10 ML IV ×2 (08:17→21:06)
[2024-08-27] MEDS: FLOMAX 0.4 MG PO (08:17)
--- NOTE | 2024-08-27 10:25 | W.PN.HOSP.TC ---
Today's Communication/Plan
-
Dispo-monitor on regular diet. monitor BP. Plan for tentative dc later
Assessment / Plan
Assessment / Plan
#Rectal bleeding
#Possible hematemesis
#Acute blood loss anemia due to GI bleeding
-Differential diagnosis include diverticular bleed; less likely brisk UGIB though cannot R/O
-Developed nausea and vomiting, states there may have been specks of blood in the vomitus
-Was initially hypotensive and tachycardic though improved readily with IV fluids
-Hemoglobin 12.6 on arrival, no recent records for hemoglobin baseline. Hgb at 7.6
-Continue to trend H/H, repeat this afternoon. s/p 1u of PRBC so far
-Maintain 2 large-bore IVs, active T&S,
-Avoid chemical DVT prophylaxis
-Status post colonoscopy with diverticulosis in the entire colon. Mild diverticulosis in the sigmoid colon. There was evidence of recent bleeding from the diverticular opening. Status post intervention with clipping. Nonbleeding internal
hemorrhoids. Repeat colonoscopy in 6 months.
-d/w with GI recommending IV iron x 1 dose today.
-GI consult
#Leukocytosis
-No fevers or infectious symptoms at this time
-Suspect this is reactive to etiology of his bleeding
-Will trend CBC and temperature curve, defer against antibiotics for now
#Hypertension Primary
-Home medications include losartan 100 mg
-Probably can be restarted in 24h.
#GERD/dyspepsia
-Home medications include bismuth, calcium carbonate, famotidine
-No known history of erosive esophagitis or Sewell's esophagus
-Will escalate PPI to twice daily IV for now as above
-States he has symptoms of GERD fairly consistently
-Would benefit from daily PPI at [place]
#Prostate cancer
-Patient states he is currently following with urology, managed with watchful waiting
-Has not previously received chemotherapy or radiation
-Remains on tamsulosin
DVT prophylaxis: SCDs
Dispo-monitor on regular diet. monitor BP. Plan for tentative dc later
Anticipated Discharge: Within 24 hours
Subjective/Interval History
-
Date of Service: August 27, 2024
seen post colonoscopy
deneis lightheadedness or diazines
denies abd pain
Objective Data
-
Labs:
Laboratory Results
08/27/24 08/27/24
06:46 10:24
WBC 8.5
Hgb 7.5 L D Pending
Hct 21.9 L Pending
Plt Count 122 L
Sodium 134 L
Potassium 4.2
Chloride 103
Carbon Dioxide 22
BUN 19
Creatinine 0.8
Glucose 122 H
Calcium 8.0 L
Vital Signs:
Vital Signs
Temp Pulse Resp BP Pulse Ox
98.0 F 85 18 122/61 100
08/27/24 10:00 08/27/24 10:12 08/27/24 10:12 08/27/24 10:00 08/27/24 10:12
I&O
08/26/24 08/27/24 08/28/24
06:59 06:59 06:59
Intake Total 2420 / 2420 540 / 540
Output Total 150 / 150
Balance 2270 / 2270 540 / 540
Physical Exam
-
General: Well Developed and No Apparent Distress
HEENT: Normocephalic, Atraumatic and Moist Mucous Membranes
Respiratory: Clear to Auscultation
Cardiac: Regular Rhythm and S1/S2; Negative Murmur, Rub or Gallop
GI: Soft, Nontender, Nondistended and Normal Bowel Sounds; Negative Organomegaly
Rectal: Deferred by Provider
Musculoskeletal: No Clubbing, No Cyanosis and No Edema
Skin: Negative Rash
Neuro: Awake, Alert, AO x 3, No Motor Deficits and Nonfocal/Grossly Intact
Psych: Calm
Data Reviewed
-
Total Time Spent with Patient (in minutes): 51
[2024-08-27 11:10] LABS: Hematocrit 22.2 % (39.0-52.0); Hemoglobin 7.6 g/dL (13.0-18.0)
[2024-08-27] MEDS: FERRLECIT 110 MG IV (14:50)
[2024-08-27] MEDS: PEPCID 40 MG PO (21:06)
[2024-08-28] VITALS (9 sets, daily range): BP systolic 114–153; BP diastolic 55–73
[2024-08-28 05:57] LABS: Blood Urea Nitrogen 17 mg/dl (9-20); Calcium 8.3 mg/dl (8.4-10.2); Carbon Dioxide 25 mmol/L (22-30); Chloride 104 mmol/L (98-107); Estimated Creatinine Clearance 93 ml/min; Glucose 108 mg/dl (70-99); Potassium 3.8 mmol/L (3.5-5.1); Sodium 137 mmol/L (135-145); eGFR > 60.00
[2024-08-28 06:11] LABS: % Basophils 0.4 % (0-2); % Eosinophils 1.1 % (0-6); % Immature Granulocytes 0.7 % (0-0.5); % Monocytes 7.5 % (1.7-9.3); % Neutrophils 61.3 % (42.2-75.2); Absolute Eosinophils 0.1 10^3/uL (0-0.7); Absolute Immature Granulocytes 0.1 10^3/uL (0-0.05); Absolute Lymphocytes 2.6 10^3/uL (1.2-3.4); Absolute Monocytes 0.7 10^3/uL (0.1-0.6); Absolute Neutrophils 5.6 10^3/uL (1.4-6.5); Hematocrit 18.9 % (39.0-52.0); Hemoglobin 6.4 g/dL (13.0-18.0); Mean Corp Hgb Conc. 33.9 g/dL (33.0-37.0); Mean Corpuscular Hgb 29.8 pg (27.0-31.0); Mean Corpuscular Volume 87.9 fL (80.0-94.0); Mean Platelet Volume 10.2 fL (7.4-10.4); Nucleated Red Blood Cells % 0 % (-); Platelet Count 122 10^3/uL (130-400); Red Blood Cell Count 2.15 10^6/uL (4.70-6.10); Red Cell Dist. Width 13.1 % (11.5-14.5); White Blood Cell Count 9.1 10^3/uL (4.8-10.8)
--- NOTE | 2024-08-28 06:28 | W.PN.UPDATE ---
Update Note
Progress Note Update
AM labs drawn, patient states he feels tired. Critical value received. Hgb 6.4, one unit PRBC's ordered.
--- NOTE | 2024-08-28 07:33 | W.PN.HOSP.TC ---
Addendum entered and electronically signed by Jordan Donaldson MD 08/28/24 14:28:
Patient with 2 episode of bright red blood per the rectum today so far. Denies abdominal pain, nausea or vomiting. Denies lightheaded and dizziness. Patient currently resting in bed. Tolerated lunch. BP stable. No tachycardia.
Hemoglobin of 6.4 this morning and received 1 unit of PRBC. Hemoglobin after PRBC at 7.2. Will transfuse additional unit of PRBC. Will ask GI to reevaluate. Recheck h/h after PRBC
d/w with RN
d/w with spouse at bedside in details
Will need to be monitored overnight.
Original Note:
Today's Communication/Plan
-
transfuse prbc
repeat H/H
BP improved
Assessment / Plan
Assessment / Plan
#Possible hematemesis
#Acute blood loss anemia due to diverticular bleed
-Developed nausea and vomiting, states there may have been specks of blood in the vomitus
-Was initially hypotensive and tachycardic though improved readily with IV fluids
-Hemoglobin 12.6 on arrival, no recent records for hemoglobin baseline.
-Continue to trend H/H, repeat this afternoon. Hgb at 6.4 plan for additional unit of PRBC today.
-Maintain 2 large-bore IVs, active T&S,
-Avoid chemical DVT prophylaxis
-Status post colonoscopy with diverticulosis in the entire colon. Mild diverticulosis in the sigmoid colon. There was evidence of recent bleeding from the diverticular opening. Status post intervention with clipping. Nonbleeding internal
hemorrhoids. Repeat colonoscopy in 6 months.
-s/p IV iron.
-GI signed off
#Leukocytosis
-No fevers or infectious symptoms at this time
-Suspect this is reactive to etiology of his bleeding
-Will trend CBC and temperature curve, defer against antibiotics for now
#Hypertension Primary
-Home medications include losartan 100 mg
-can be restarted
#GERD/dyspepsia
-Home medications include bismuth, calcium carbonate, famotidine
-No known history of erosive esophagitis or Sewell's esophagus
-States he has symptoms of GERD fairly consistently
-Would benefit from daily PPI at DC
#Prostate cancer
-Patient states he is currently following with urology, managed with watchful waiting
-Has not previously received chemotherapy or radiation
-Remains on tamsulosin
#Mild thrombocytopenia
-monitor for now. Not on heparin
DVT prophylaxis: SCDs
Anticipated Discharge: Today
Subjective/Interval History
-
Date of Service: August 28, 2024
Feeling better
no further bowel movements
overnight hgb at 6.4 awaiting PRBC
Objective Data
-
Labs:
Laboratory Results
08/28/24
05:13
WBC 9.1
Hgb 6.4 L*
Hct 18.9 L*
Plt Count 122 L
Sodium 137
Potassium 3.8
Chloride 104
Carbon Dioxide 25
BUN 17
Creatinine 0.8
Glucose 108 H
Calcium 8.3 L
Vital Signs:
Vital Signs
Temp Pulse Resp BP Pulse Ox
98.2 F 92 18 149/72 98
08/27/24 23:25 08/27/24 23:25 08/27/24 23:25 08/27/24 23:25 08/27/24 23:25
I&O
08/27/24 08/28/24 08/29/24
06:59 06:59 06:59
Intake Total 540 / 540 1919
Balance 540 / 540 1919
Physical Exam
-
General: Well Developed and No Apparent Distress
HEENT: Normocephalic, Atraumatic and Moist Mucous Membranes
Respiratory: Clear to Auscultation
Cardiac: Regular Rhythm and S1/S2; Negative Murmur, Rub or Gallop
GI: Soft, Nontender, Nondistended and Normal Bowel Sounds; Negative Organomegaly
Rectal: Deferred by Provider
Musculoskeletal: No Clubbing, No Cyanosis and No Edema
Skin: Negative Rash
Neuro: Awake, Alert, AO x 3, No Motor Deficits and Nonfocal/Grossly Intact
Psych: Calm
[2024-08-28] MEDS: CRESTOR 5 MG PO (08:58)
[2024-08-28] MEDS: FLOMAX 0.4 MG PO (08:58)
[2024-08-28] MEDS: NSS (PRESERVATIVE FREE) 10 ML IV (08:59)
[2024-08-28] MEDS: PROTONIX IV 40 MG IV (08:59)
[2024-08-28 14:07] LABS: Hematocrit 21.3 % (39.0-52.0); Hemoglobin 7.2 g/dL (13.0-18.0)
--- NOTE | 2024-08-28 14:48 | W.PN.GI.CBS2 ---
Addendum entered and electronically signed by Macy Head DO 08/28/24 18:11:
Patient seen and examined independently of [employer]. I agree with her note with my additions below
Erick is a 69-year-old male with history of GERD, prostate cancer who came in with rectal bleeding suspected diverticular based on the painless nature and significant volume with multiple episodes where he was initially hypotensive and tachycardic
in the emergency room. Had a CTA that was without evidence of active bleeding. He underwent colonoscopy with Dr. Schaeffer on 08/27/2024 where she found some blood and suspected area of diverticulosis that was oozing and was clipped. On admission
his hemoglobin was 12.6 which dropped to 9.8. Yesterday prior to scope he was 7.5 and was having bleeding throughout the prep. This morning hemoglobin 6.4 had 1 unit of blood and on repeat 7.2. Has received another unit of blood for total of 3
during this admission. He had 3 episodes of rectal bleeding today 08/28/2024. He is hemodynamically stable. He is actually hypertensive. He is starting to feel little weak.
Suspect persistent diverticular bleeding. Currently not bleeding enough to warrant CT angio. Hopefully it will stop overnight. Low threshold for IMU/ICU. Monitor. Bedrest as these bleeds can be massive and if he syncopized as he could hurt
himself.
If it does not stop we will reprep him if it is not enough for CT angio. Clear liquids are fine
Original Note:
Today's Communication / Plan
-
s/p colonoscopy with clip on tic-- most likely lower source he did have vomiting with speck of blood but BUN stable
some drop in hbg to 6.4 this AM
no stools for 29 hours then 3 stool with red blood last 2 hours with concern for diverticular re bleed
if persists consider CTA (per review with Dr. Champagne would do first) if + then angio vs repeat colon (if prep needed pt request miralax/gatorade)
-monitor outout
-Maintain 2 large-bore peripheral gauge IVs
-Hgb follow up Q8H
-decrease to NPO
cont PPI
Assessment / Plan
-
Impression: The patient is a 69 year old male who presented to ER complaining from rectal bleeding and feeling lightheadedness with multiple bloody stools since admission. He initially had CTA that was neg then colon with bleeding from TIC with
clip. Initially did well then increased bleeding 29 hours after colon. hbg 12.6 on admission with drop to 6.4-- total 3 units transfused
Laboratory Tests
08/26/24 08/27/24 08/27/24
12:06 06:46 11:00
Hgb 10.0 L 7.5 L D 7.6 L
08/28/24 08/28/24
05:13 13:44
Hgb 6.4 L* 7.2 L
s/p transfusion 1 unit 08/26 and 08/28 2 units
08/27 colonoscopy - The examined portion of the ileum was normal.
- Diverticulosis in the entire examined colon.
- Mild diverticulosis in the sigmoid colon. There was
evidence of recent bleeding from the diverticular
opening. Clips (MR conditional) were placed. Clip
signals collection technician: [employer].
- Non-bleeding internal hemorrhoids.
- No specimens collected.
#Hematochezia likely from diverticulosis s/p colon with clip of tic
#symptomatic anemia
# mild thrombocytopenia
#Hematemesis? less likely upper GI bleeding
#GERD
# prostate CA no prior radiation
PLAN:
s/p colonoscopy with clip on tic-- most likely lower source he did have vomiting with speck of blood but BUN stable
some drop in hbg to 6.4 this AM
no stools for 29 hours then 3 stool with red blood last 2 hours with concern for diverticular re bleed
if persists consider CTA (per review with Dr. Champagne would do first) if + then angio vs repeat colon (if prep needed pt request miralax/gatorade)
-monitor outout
-Maintain 2 large-bore peripheral gauge IVs
-Hgb follow up Q8H
-decrease to NPO
cont PPI
Subjective
Subjective
Date of Service: August 28, 2024
3 bloody stool last 2 hours , on low residue diet last at lunch now NPO
Objective
Data Reviewed
Laboratory Data:
Laboratory Results
08/28/24 13:44
08/28/24 05:13
Laboratory Results
PT 15.7 Sec (11.4-14.6) H 08/25/24 09:42
INR 1.22 08/25/24 09:42
APTT 23.2 Sec (23.4-35.0) L 08/25/24 09:42
Magnesium 1.7 mg/dl (1.6-2.3) 08/26/24 05:31
Total Bilirubin 0.4 mg/dl (0.2-1.3) 08/25/24 09:42
AST 21 U/L (17-59) 08/25/24 09:42
ALT 27 U/L (0-50) 08/25/24 09:42
Alkaline Phosphatase 59 U/L (38-126) 08/25/24 09:42
Vital Signs and I&O:
Vital Signs
Temp Pulse Resp BP Pulse Ox
98.0 F 94 18 114/55 99
08/28/24 12:52 08/28/24 12:52 08/28/24 12:52 08/28/24 12:52 08/28/24 12:52
I&O
08/27/24 08/28/24 08/29/24
06:59 06:59 06:59
Intake Total 540 / 540 1919 / 1919 250 / 250
Balance 540 / 540 1919 / 1920 250 / 250
Physical Exam
Physical Exam
HEENT: Anicteric and Moist mucous membranes
Cardiology: Normal Sinus Rhythm
Pulmonary: Clear
GI: Soft, Non Distended and Non Tender
Rectal: Other (noted large volume red blood in toilet in room)
Extremities: No Edema
Neuro: Non Focal
[2024-08-28 20:19] LABS: Hematocrit 23.6 % (39.0-52.0); Hemoglobin 7.9 g/dL (13.0-18.0)
[2024-08-28] MEDS: PEPCID 40 MG PO (21:01)
[2024-08-28] MEDS: NSS 1000 IV (21:02)
[2024-08-29 05:52] LABS: % Basophils 0.4 % (0-2); % Eosinophils 2.6 % (0-6); % Immature Granulocytes 0.8 % (0-0.5); % Lymphocytes 27.1 % (20.5-51.1); % Monocytes 9.1 % (1.7-9.3); Absolute Eosinophils 0.2 10^3/uL (0-0.7); Absolute Immature Granulocytes 0.1 10^3/uL (0-0.05); Absolute Lymphocytes 2.1 10^3/uL (1.2-3.4); Absolute Monocytes 0.7 10^3/uL (0.1-0.6); Absolute Neutrophils 4.6 10^3/uL (1.4-6.5); Hematocrit 21.8 % (39.0-52.0); Hemoglobin 7.1 g/dL (13.0-18.0); Mean Corp Hgb Conc. 32.6 g/dL (33.0-37.0); Mean Corpuscular Hgb 29.2 pg (27.0-31.0); Mean Corpuscular Volume 89.7 fL (80.0-94.0); Mean Platelet Volume 9.7 fL (7.4-10.4); Nucleated Red Blood Cells % 0.4 % (-); Platelet Count 111 10^3/uL (130-400); Red Blood Cell Count 2.43 10^6/uL (4.70-6.10); Red Cell Dist. Width 14.2 % (11.5-14.5); White Blood Cell Count 7.7 10^3/uL (4.8-10.8)
[2024-08-29 07:07] LABS: Blood Urea Nitrogen 18 mg/dl (9-20); Calcium 7.5 mg/dl (8.4-10.2); Carbon Dioxide 21 mmol/L (22-30); Chloride 107 mmol/L (98-107); Estimated Creatinine Clearance 106 ml/min; Glucose 106 mg/dl (70-99); Potassium 3.4 mmol/L (3.5-5.1); Sodium 138 mmol/L (135-145); eGFR > 60.00
[2024-08-29 07:49] VITALS: BP 128/71
[2024-08-29 09:04] LABS: Iron 37 ug/dl (49-181); Magnesium 1.8 mg/dl (1.6-2.3)
[2024-08-29 09:12] LABS: Percent Saturation 14 % (20-50); Total Iron Binding Capacity 260 ug/dl (261-462)
[2024-08-29 09:21] LABS: Vitamin D, 25-OH*** 17.5 ng/mL (30-80)
[2024-08-29] MEDS: PROTONIX IV 40 MG IV (09:25)
[2024-08-29] MEDS: NSS (PRESERVATIVE FREE) 10 ML IV (09:25)
[2024-08-29] MEDS: CRESTOR 5 MG PO (09:25)
[2024-08-29] MEDS: KCL 40 MEQ PO (09:25)
[2024-08-29] MEDS: FLOMAX 0.4 MG PO (09:25)
[2024-08-29 09:39] LABS: Ferritin 84.9 ng/ml (17.9-464.0)
[2024-08-29 09:53] LABS: Vitamin B12 626 pg/ml (239-931)
--- NOTE | 2024-08-29 11:13 | W.PN.GI.CBS2 ---
Addendum entered and electronically signed by Macy Head DO 08/29/24 11:20:
give one dose of IV iron
Original Note:
Today's Communication / Plan
-
- Okay for out of bed, hemoglobin check at 3 PM, for liquid diet.
-- Please let me know if he has any significant lower GI output or becomes clinically symptomatic with lightheadedness or dizziness
Assessment / Plan
-
Impression: The patient is a 69 year old male who presented to ER complaining from rectal bleeding and feeling lightheadedness with multiple bloody stools since admission. He initially had CTA that was neg then colon with bleeding from TIC with
clip. Initially did well then increased bleeding 29 hours after colon. hbg 12.6 on admission with drop to 6.4-- total 3 units transfused
Laboratory Tests
08/26/24 08/27/24 08/27/24
12:06 06:46 11:00
Hgb 10.0 L 7.5 L D 7.6 L
08/28/24 08/28/24
05:13 13:44
Hgb 6.4 L* 7.2 L
s/p transfusion 1 unit 08/26 and 08/28 2 units
08/27 colonoscopy - The examined portion of the ileum was normal.
- Diverticulosis in the entire examined colon.
- Mild diverticulosis in the sigmoid colon. There was
evidence of recent bleeding from the diverticular
opening. Clips (MR conditional) were placed. Clip
radiology ct technologist: [employer].
- Non-bleeding internal hemorrhoids.
- No specimens collected.
#Hematochezia likely from diverticulosis s/p colon with clip of tic
#symptomatic anemia
# mild thrombocytopenia
#Hematemesis? less likely upper GI bleeding
#GERD
# prostate CA no prior radiation
PLAN:
08/29/2024 - 3 blood BMs yesterday between 1-3pm then small less blood more stool at 9pm 08/28
08/28 6.4 --> 1 unit --> 7.2 --1 unit --> 7.9 --> 08/29: 7.1
s/p colonoscopy with clip on tic- 08/27
Repeat hemoglobin this evening. Okay for full liquid diet. If hemoglobin stable in the morning go back to low residue diet
no stools for 29 hours then 3 stool with red blood last 2 hours with concern for diverticular re bleed
if becomes significant or persists consider CTA
- patient ok for OOB/shower - told him if he feels lightheaded in anyway - stay in bed
-monitor output
-Maintain 2 large-bore peripheral gauge IVs
-Hgb follow up Q12 or more frequently if he clinically bleeds or gets lightheaded or dizzy
cont PPI
Subjective
Subjective
Date of Service: August 29, 2024
Patient had to 3 bloody bowel movements yesterday between the hours of 1 and 3 PM. No bowel movements until 9 PM which was much less volume. He is no longer weak dizzy or lightheaded.
Objective
Data Reviewed
Laboratory Data:
Laboratory Results
08/29/24 05:41
08/29/24 05:41
Laboratory Results
PT 15.7 Sec (11.4-14.6) H 08/25/24 09:42
INR 1.22 08/25/24 09:42
APTT 23.2 Sec (23.4-35.0) L 08/25/24 09:42
Magnesium 1.8 mg/dl (1.6-2.3) 08/29/24 05:41
Total Bilirubin 0.4 mg/dl (0.2-1.3) 08/25/24 09:42
AST 21 U/L (17-59) 08/25/24 09:42
ALT 27 U/L (0-50) 08/25/24 09:42
Alkaline Phosphatase 59 U/L (38-126) 08/25/24 09:42
Vital Signs and I&O:
Vital Signs
Temp Pulse Resp BP Pulse Ox
98.3 F 90 16 128/71 100
08/29/24 07:49 08/29/24 07:49 08/29/24 07:49 08/29/24 07:49 08/29/24 07:49
I&O
08/28/24 08/29/24 08/30/24
06:59 06:59 06:59
Intake Total 1919 2780 / 2780
Output Total 800 / 800
Balance 1919 / 1979
Physical Exam
Physical Exam
HEENT: Anicteric
GI: Soft, Non Distended and Non Tender
Extremities: No Edema
Neuro: Non Focal
[2024-08-29 11:17] VITALS: BMI 26.1
--- NOTE | 2024-08-29 11:38 | W.PN.HOSP.TC ---
Today's Communication/Plan
-
One unit of blood
Watch for any more bleeding
Assessment / Plan
Assessment / Plan
69-year-old male with bright red blood per rectum
CVS: S1-S2 normal
Chest: CTA B/L
Abdomen: Soft, NT / Bowel sounds present
Extremities: No edema
# Bleeding per rectum
Acute blood loss anemia secondary to GI bleed
Was initially hypotensive and tachycardic improved
Hemoglobin was 12.6 on arrival went down to 6.4
Status post colonoscopy 08/27/2024 showed diverticulosis in the entire colon status post clipping, also found nonbleeding internal hemorrhoids
Status post IV iron. Continue p.o. iron
Status post PRBCs-3 units. Order 1 more unit today 08/29/2024
Follow H&H and transfuse as needed
# Hypokalemia-replace
# Hypertension-hold losartan with bleeding
# History of GERD/dyspepsia
History of erosive esophagitis and Sewell's esophagus
On bismuth, calcium carbonate and famotidine as outpatient
PPI
# History of prostate cancer-follows with urology managed with watchful waiting
Continue Flomax
# Hyperlipidemia-continue statin
# Vitamin D deficiency-replace
# Mild thrombocytopenia
# DVT prophylaxis-SCDs
D/W Rn at bed side
D/W GI
Anticipated Discharge: Within 24 hours
Subjective/Interval History
-
Date of Service: August 29, 2024
Objective Data
-
Labs:
Laboratory Results
08/29/24
05:41
WBC 7.7
Hgb 7.1 L
Hct 21.8 L
Plt Count 111 L
Sodium 138
Potassium 3.4 L
Chloride 107
Carbon Dioxide 21 L
BUN 18
Creatinine 0.7
Glucose 106 H
Calcium 7.5 L
Vital Signs:
Vital Signs
Temp Pulse Resp BP Pulse Ox
98.3 F 90 16 128/71 100
08/29/24 07:49 08/29/24 07:49 08/29/24 07:49 08/29/24 07:49 08/29/24 07:49
I&O
08/28/24 08/29/24 08/30/24
06:59 06:59 06:59
Intake Total 1919 2780 / 278
Output Total 800 / 800
Balance 1919 / 1979
[2024-08-29 11:45] VITALS: BP 132/66
[2024-08-29 12:05] VITALS: BP 121/66
[2024-08-29 13:56] VITALS: BP 130/71
[2024-08-29] MEDS: FERRLECIT 110 MG IV (14:08)
[2024-08-29] MEDS: FEOSOL 325 MG PO (14:08)
[2024-08-29] MEDS: DRISDOL (VITAMIN D2) 50000 UNITS PO (14:09)
[2024-08-29 15:01] VITALS: BP 142/66
[2024-08-29 17:17] LABS: Hematocrit 24.4 % (39.0-52.0); Hemoglobin 8.3 g/dL (13.0-18.0)
[2024-08-29] MEDS: NSS IV ×2 (19:43)
[2024-08-29] MEDS: PEPCID 40 MG PO (21:01)
[2024-08-29 23:33] VITALS: BP 121/60
[2024-08-30 07:20] LABS: Blood Urea Nitrogen 11 mg/dl (9-20); Calcium 8.4 mg/dl (8.4-10.2); Carbon Dioxide 20 mmol/L (22-30); Chloride 107 mmol/L (98-107); Estimated Creatinine Clearance 93 ml/min; Glucose 120 mg/dl (70-99); Sodium 140 mmol/L (135-145); eGFR > 60.00
[2024-08-30 07:46] VITALS: BP 137/75
[2024-08-30] MEDS: PROTONIX IV 40 MG IV (08:20)
[2024-08-30] MEDS: NSS (PRESERVATIVE FREE) 10 ML IV (08:20)
[2024-08-30] MEDS: CRESTOR 5 MG PO (08:24)
[2024-08-30] MEDS: VITAMIN D3 (cholecalciferol) 25 MCG PO (08:24)
[2024-08-30] MEDS: FEOSOL 325 MG PO (08:24)
[2024-08-30] MEDS: FLOMAX 0.4 MG PO (08:24)
[2024-08-30] MEDS: CLARITIN PO (08:44)
[2024-08-30 09:28] LABS: Hematocrit 27.7 % (39.0-52.0); Hemoglobin 9.5 g/dL (13.0-18.0); Mean Corp Hgb Conc. 34.3 g/dL (33.0-37.0); Mean Corpuscular Hgb 30.1 pg (27.0-31.0); Mean Corpuscular Volume 87.7 fL (80.0-94.0); Mean Platelet Volume 10.4 fL (7.4-10.4); Platelet Count 165 10^3/uL (130-400); Red Blood Cell Count 3.16 10^6/uL (4.70-6.10); Red Cell Dist. Width 14.8 % (11.5-14.5); White Blood Cell Count 8.9 10^3/uL (4.8-10.8)
--- NOTE | 2024-08-30 11:29 | W.PN.HOSP.TC ---
Today's Communication/Plan
-
Advance diet to solids
Watch hemoglobin or any bleeding
Assessment / Plan
Assessment / Plan
69-year-old male with bright red blood per rectum
CVS: S1-S2 normal
Chest: CTA B/L
Abdomen: Soft, NT / Bowel sounds present
Extremities: No edema
# Bleeding per rectum
Acute blood loss anemia secondary to GI bleed
Was initially hypotensive and tachycardic improved
Hemoglobin was 12.6 on arrival went down to 6.4
Status post colonoscopy 08/27/2024 showed diverticulosis in the entire colon status post clipping, also found nonbleeding internal hemorrhoids
Status post IV iron. Continue p.o. iron
Status post PRBCs-4 units.
Hb 9.5 today. This is likely falsely high.
No more gina bleeding, brown stool
# Hypokalemia-replaced
# Hypertension-hold losartan with bleeding
# History of GERD/dyspepsia
History of erosive esophagitis and Sewell's esophagus
On bismuth, calcium carbonate and famotidine as outpatient
PPI
# History of prostate cancer-follows with urology managed with watchful waiting
Continue Flomax
# Hyperlipidemia-continue statin
# Vitamin D deficiency-replace
# Mild thrombocytopenia
# DVT prophylaxis-SCDs
D/W Rn at bed side
D/W GI
Anticipated Discharge: Within 24 hours
Subjective/Interval History
-
Date of Service: August 30, 2024
Objective Data
-
Labs:
Laboratory Results
08/30/24
06:12
WBC 8.9
Hgb 9.5 L
Hct 27.7 L
Plt Count 165 D
Sodium 140
Potassium 4.0
Chloride 107
Carbon Dioxide 20 L
BUN 11
Creatinine 0.8
Glucose 120 H
Calcium 8.4
Vital Signs:
Vital Signs
Temp Pulse Resp BP Pulse Ox
97.8 F 73 17 137/75 96
08/30/24 07:46 08/30/24 07:46 08/30/24 07:46 08/30/24 07:46 08/30/24 07:46
I&O
08/29/24 08/30/24 08/31/24
06:59 06:59 06:59
Intake Total 2780 / 2780 2169 / 2169
Output Total 800 / 800
Balance 1979
--- NOTE | 2024-08-30 11:30 | W.PN.GI.CBS2 ---
Today's Communication / Plan
-
Low residue diet, if hemoglobin stable tomorrow morning around 8.3 okay for discharge
Assessment / Plan
-
Impression: The patient is a 69 year old male who presented to ER complaining from rectal bleeding and feeling lightheadedness with multiple bloody stools since admission. He initially had CTA that was neg then colon with bleeding from TIC with
clip. Initially did well then increased bleeding 29 hours after colon. hbg 12.6 on admission with drop to 6.4-- total 3 units transfused
Laboratory Tests
08/26/24 08/27/24 08/27/24
12:06 06:46 11:00
Hgb 10.0 L 7.5 L D 7.6 L
08/28/24 08/28/24
05:13 13:44
Hgb 6.4 L* 7.2 L
s/p transfusion 1 unit 08/26 and 08/28 2 units
08/27 colonoscopy - The examined portion of the ileum was normal.
- Diverticulosis in the entire examined colon.
- Mild diverticulosis in the sigmoid colon. There was
evidence of recent bleeding from the diverticular
opening. Clips (MR conditional) were placed. Clip
hearing healthcare practitioner: [employer].
- Non-bleeding internal hemorrhoids.
- No specimens collected.
#Hematochezia likely from diverticulosis s/p colon with clip of tic
#symptomatic anemia
# mild thrombocytopenia
#Hematemesis? less likely upper GI bleeding
#GERD
# prostate CA no prior radiation
PLAN:
08/29/2024 - 3 blood BMs yesterday between 1-3pm then small less blood more stool at 9pm 08/28
08/28 6.4 --> 1 unit --> 7.2 --1 unit --> 7.9 --> 08/29: 7.1
s/p colonoscopy with clip on tic- 11/14
08/30/2024
-- Patient having brown stools, hemoglobin is better than expected. Yesterday morning 7.1 received 1 unit of blood and then 8.3. Today 9.5.
--Did receive 1 dose of IV iron
-- Okay for low residue diet
-If he does well and hemoglobin is stable-around 8.3 okay for discharge tomorrow
--Discussed with Dr. De Anda
Subjective
Subjective
Date of Service: August 30, 2024
Patient has had 2 brown stools since yesterday
Objective
Data Reviewed
Laboratory Data:
Laboratory Results
08/30/24 06:12
08/30/24 06:12
Laboratory Results
PT 15.7 Sec (11.4-14.6) H 08/25/24 09:42
INR 1.22 08/25/24 09:42
APTT 23.2 Sec (23.4-35.0) L 08/25/24 09:42
Magnesium 2.0 mg/dl (1.6-2.3) 08/30/24 06:12
Total Bilirubin 0.4 mg/dl (0.2-1.3) 08/25/24 09:42
AST 21 U/L (17-59) 08/25/24 09:42
ALT 27 U/L (0-50) 08/25/24 09:42
Alkaline Phosphatase 59 U/L (38-126) 08/25/24 09:42
Vital Signs and I&O:
Vital Signs
Temp Pulse Resp BP Pulse Ox
97.8 F 73 17 137/75 96
08/30/24 07:46 08/30/24 07:46 08/30/24 07:46 08/30/24 07:46 08/30/24 07:46
I&O
08/29/24 08/30/24 08/31/24
06:59 06:59 06:59
Intake Total 2780 / 2780 2169
Output Total 800 / 800
Balance 1979
Physical Exam
Physical Exam
HEENT: Anicteric
GI: Soft, Non Distended and Non Tender
Extremities: No Edema
Neuro: Non Focal
[2024-08-30 15:43] VITALS: BP 140/78
[2024-08-30] MEDS: PEPCID 40 MG PO (21:10)
[2024-08-30 23:39] VITALS: BP 134/70
[2024-08-31 07:10] LABS: Hematocrit 28.1 % (39.0-52.0)
[2024-08-31 07:15] VITALS: BP 143/74
[2024-08-31] MEDS: CLARITIN 10 MG PO (07:49)
[2024-08-31] MEDS: CRESTOR 5 MG PO (07:49)
[2024-08-31] MEDS: PROTONIX IV 40 MG IV (07:49)
[2024-08-31] MEDS: FEOSOL 325 MG PO (07:49)
[2024-08-31] MEDS: NSS (PRESERVATIVE FREE) 10 ML IV (07:49)
[2024-08-31] MEDS: FLOMAX 0.4 MG PO (07:49)
[2024-08-31] MEDS: VITAMIN D3 (cholecalciferol) 25 MCG PO (09:10)
--- NOTE | 2024-08-31 10:55 | W.PN.HOSP.TC ---
Addendum entered and electronically signed by Adri De Anda MD 08/31/24 11:01:
offered to talk to - Pt declined
Original Note:
Today's Communication/Plan
-
Discharge
Assessment / Plan
Assessment / Plan
69-year-old male with bright red blood per rectum
CVS: S1-S2 normal
Chest: CTA B/L
Abdomen: Soft, NT / Bowel sounds present
Extremities: No edema
# Bleeding per rectum
Acute blood loss anemia secondary to GI bleed
Was initially hypotensive and tachycardic improved
Hemoglobin was 12.6 on arrival went down to 6.4
Status post colonoscopy 08/27/2024 showed diverticulosis in the entire colon status post clipping, also found nonbleeding internal hemorrhoids
Status post IV iron. Continue p.o. iron
Status post PRBCs-4 units.
Hb 9.0 today.
No more bleeding.
# Hypokalemia-replaced
# Hypertension-restart losartan at home
# History of GERD/dyspepsia
History of erosive esophagitis and Sewell's esophagus
On bismuth, calcium carbonate and famotidine as outpatient
PPI
# History of prostate cancer-follows with urology managed with watchful waiting
Continue Flomax
# Hyperlipidemia-continue statin
# Vitamin D deficiency-replace
# Mild thrombocytopenia resolved
# DVT prophylaxis-SCDs
D/W Rn at bed side
D/W GI
More than 30 minutes spent in discharge including
Final examination of the patient
Summarizing hospital stay
Instructions for continuing care to all relevant caregivers
Preparation of discharge records, prescriptions, and referral forms
Total time spent (in minutes): 32 in
Anticipated Discharge: Today
Subjective/Interval History
-
Date of Service: August 31, 2024
Objective Data
-
Labs:
Laboratory Results
08/31/24
06:36
Hgb 9.0 L
Hct 28.1 L
Vital Signs:
Vital Signs
Temp Pulse Resp BP Pulse Ox
98.1 F 81 18 143/74 98
08/31/24 07:15 08/31/24 07:15 08/31/24 07:15 08/31/24 07:15 08/31/24 07:15
I&O
08/30/24 08/31/24 09/01/24
06:59 06:59 06:59
Intake Total 2170 / 2170 780 / 780
Balance 2170 / 2170 780 / 780
--- NOTE | 2024-08-31 11:00 | W.DS.TRANS ---
Addendum entered and electronically signed by Adri De Anda MD 08/31/24 15:33:
Dictation- [id number]
Original Note:
DC Summary - Contract Coordinator
-
Discharge Instructions:
Discharge Diagnosis/Procedures Acute lower gastrointestinal bleeding secondary
due to diverticulosis s/p clipping.
Status post blood transfusion
Prostate cancer
High cholesterol
Hypertension
Diet Regular
Activity As tolerated,With assistance
Driving Restrictions No driving for 24 hours
Blood Work CBC in 7 days with primary doctor
Instructions:
Stand-Alone Forms:
Changes to Home Medications: Yes
Discharge Medications:
DC Medications w/original date entered in [employer]
Lactobac no.2-Bifidobac no.1-S. thermo 112.5 billion cell capsule (Visbiome) 1 cap PO DAILY probiotic 08/25/24
acetaminophen 325 mg tablet (Tylenol) 650 mg PO Q4HPRN PRN mild pain 08/25/24
ascorbic acid (vitamin C) 1,000 mg tablet (Vitamin C) 1,000 mg PO DAILY Supplement 08/25/24
bismuth subsalicylate 262 mg chewable tablet (Pepto-Bismol) 2 tab PO DAILYPRN PRN gerd 08/25/24
calcium carbonate (Tums) 900 mg PO BIDPRN PRN gerd 08/25/24
calcium polycarbophil 625 mg tablet (FiberCon) 625 mg PO DAILY Constipation 08/25/24
cyanocobalamin (vitamin B-12) 3,000 mcg capsule 3,000 mcg PO DAILY Supplement 08/25/24
famotidine 20 mg tablet (Pepcid) 40 mg PO HS Gastrointestinal Issue 08/25/24
losartan 100 mg tablet 100 mg PO DAILY Blood Pressure 08/25/24
rosuvastatin 5 mg tablet (Crestor) 5 mg PO DAILY High Cholesterol 08/25/24
tamsulosin 0.4 mg capsule (Flomax) 0.4 mg PO DAILY Urinary Issue 08/25/24
pantoprazole 40 mg tablet,delayed release 40 mg PO DAILY 4 weeks #28 tabs 08/27/24
cetirizine 10 mg capsule 10 mg PO DAILY 08/30/24
cholecalciferol (vitamin D3) 25 mcg (1,000 unit) tablet 25 mcg PO DAILY vit d Def #0 tabs 08/31/24
ferrous sulfate 325 mg (65 mg iron) tablet (FeroSul) 325 mg PO DAILY anemia #0 tabs 08/31/24
Home Medication Changes
new
pantoprazole 40 mg tablet,delayed release 40 mg PO DAILY 4 weeks #28 tabs 08/27/24
cholecalciferol (vitamin D3) 25 mcg (1,000 unit) tablet 25 mcg PO DAILY vit d Def #0 tabs 08/31/24
ferrous sulfate 325 mg (65 mg iron) tablet (FeroSul) 325 mg PO DAILY anemia #0 tabs 08/31/24
Pending Results: No
[2024-08-31 11:20] VITALS: BP 150/82
== END 2024-08-31 11:26 | disposition home or self-care (01) | DRG 378 ==
LOC: 3 WEST ACU 13:08
PROVIDERS: Hospitalist; Nurse Practitioner Family; ADMITTING PHYSICIAN Internal Medicine; ATTENDING PHYSICIAN Hospitalist; CONSULT PHYSICIAN Internal Medicine; EMERGENCY PHYSICIAN Emergency Medicine; FAMILY PHYSICIAN Family Medicine
PROC: 30233N1 Transfusion of Nonautologous Red Blood Cells into Peripheral Vein, Percutaneous Approach (ICD-10-PCS; 2024-08-26)
PROC: 0W3P8ZZ Control Bleeding in Gastrointestinal Tract, Via Natural or Artificial Opening Endoscopic (ICD-10-PCS; 2024-08-27)
DX: K57.31 Diverticulosis of large intestine without perforation or abscess with bleeding (principal); D62 Acute posthemorrhagic anemia; D72.829 Elevated white blood cell count, unspecified; I10 Essential (primary) hypertension; K21.9 Gastro-esophageal reflux disease without esophagitis; C61 Malignant neoplasm of prostate; E87.6 Hypokalemia; E78.00 Pure hypercholesterolemia, unspecified; E55.9 Vitamin D deficiency, unspecified; D69.6 Thrombocytopenia, unspecified; K64.8 Other hemorrhoids
CPT/HCPCS: 74174; 80048; 80053; 82306; 82607; 82728; 83540; 83550; 83735; 85014; 85018; 85025; 85027; 85610; 85730; 86850; 86900; 86901; 86920; 87045; 87046; 87427; 93005; 96360; 99285; J2916; P9016; Q9967

== ENCOUNTER 2024-09-02 17:18 | Inpatient (IN) | payer MEDICARE, BC, SELFPAY ==
[2024-09-02] VITALS (7 sets, daily range): BP systolic 127–152; BP diastolic 64–82; BMI 27.6; BMI 27.0
[2024-09-02 14:55] LABS: % Basophils 0.4 % (0-2); % Eosinophils 2.4 % (0-6); % Immature Granulocytes 0.7 % (0-0.5); % Lymphocytes 27.1 % (20.5-51.1); % Monocytes 8.3 % (1.7-9.3); % Neutrophils 61.1 % (42.2-75.2); Absolute Eosinophils 0.1 10^3/uL (0-0.7); Absolute Lymphocytes 1.5 10^3/uL (1.2-3.4); Absolute Monocytes 0.5 10^3/uL (0.1-0.6); Absolute Neutrophils 3.3 10^3/uL (1.4-6.5); Hematocrit 27.3 % (39.0-52.0); Hemoglobin 8.7 g/dL (13.0-18.0); Mean Corp Hgb Conc. 31.9 g/dL (33.0-37.0); Mean Corpuscular Hgb 29.6 pg (27.0-31.0); Mean Corpuscular Volume 92.9 fL (80.0-94.0); Mean Platelet Volume 9.2 fL (7.4-10.4); Nucleated Red Blood Cells % 0 % (-); Platelet Count 225 10^3/uL (130-400); Red Blood Cell Count 2.94 10^6/uL (4.70-6.10); Red Cell Dist. Width 15.5 % (11.5-14.5); White Blood Cell Count 5.4 10^3/uL (4.8-10.8)
[2024-09-02 15:02] LABS: ALT (SGPT) 21 U/L (0-50); AST (SGOT) 22 U/L (17-59); Albumin 3.5 g/dl (3.5-5.0); Alkaline Phosphatase 57 U/L (38-126); Blood Urea Nitrogen 15 mg/dl (9-20); Calcium 8.2 mg/dl (8.4-10.2); Carbon Dioxide 21 mmol/L (22-30); Chloride 105 mmol/L (98-107); Glucose 161 mg/dl (70-99); Potassium 3.5 mmol/L (3.5-5.1); Sodium 138 mmol/L (135-145); Total Bilirubin 0.4 mg/dl (0.2-1.3); eGFR > 60.00
--- NOTE | 2024-09-02 16:05 | ED.GENMED ---
History of Present Illness
General
Chief Complaint: Rectal Bleeding
Source: patient
Exam Limitations: none
Time Seen by Provider: 09/02/24 15:46
Nursing documentation reviewed up to this point in time: agreed with
History of Present Illness
History of Present Illness:
Patient to ED with complaint of rectal bleeding. He was discharge from her 2 days ago after inpatient stay for rectal bleeding. Colonoscopy revealed bleeding diverticuli and sites were clipped. He received multiple blood transfusions while here
for anemia. States he was feeling well until today. States he had urge to pass stool but insteady passed a large amt of blood with stool Brought to ED by for eval. Reports weakness and fatigue. No abdominal pain or cramping.
Review of Systems
Review of Systems
Allergies reviewed?: Yes
All Other Systems: ROS reviewed and negative except as documented in HPI and ROS
Constitutional: Reports fatigue
EENT: Reports no symptoms
Respiratory: Reports no symptoms
Cardiac: Reports no symptoms
ABD/GI: Reports bloody stools
: Reports no symptoms
Musculoskeletal: Reports no symptoms
Neurological: Reports weakness
Psychiatric: Reports no symptoms
Phy Exam
General Physical Exam
General Presentation: well appearing and mild distress
General age: appears stated age
General Skin: warm and dry
General Habitus: normal
General Mental: alert
Cardiovascular Exam
Cardiovascular Exam: regular rate/rhythm and no edema
Pulmonary Exam
Pulmonary Exam: lungs clear and no respiratory distress
Gastrointestinal Exam
Gastrointestinal Exam: normal bowel sounds, non tender, soft, no organomegaly and non distended
Rectal Exam: normal external exam, normal sphincter tone and soft stool
Stool: maroon
Guaiac Status: grossly bloody - positive
Musculoskeletal Exam
Musculoskeletal Exam: full ROM and neuro vasc intact
Skin Exam
Skin Exam: normal color, warm/dry and no rash
Psychiatric Exam
Psychiatric Exam: normal mood/affect
Course
Orders/Labs/Results
Orders:
Orders
09/02/24 14:41
Type+Screen Urgent
Complete Blood Count/With Diff Urgent
Comprehensive Metabolic Panel Urgent
09/02/24 16:02
0.9% Sodium Chloride 1000 ml [Nss] 1,000 ml IV BOLUS
Abnormal Lab Results
09/02/24
14:41
RBC 2.94 L 10^6/uL
(4.70-6.10)
Hgb 8.7 L g/dL
(13.0-18.0)
Hct 27.3 L %
(39.0-52.0)
MCHC 31.9 L g/dL
(33.0-37.0)
RDW 15.5 H %
(11.5-14.5)
Immature Gran % 0.7 H %
(0-0.5)
Carbon Dioxide 21 L mmol/L
(22-30)
Glucose 161 H mg/dl
(70-99)
Calcium 8.2 L mg/dl
(8.4-10.2)
Total Protein 6.0 L g/dl
(6.3-8.2)
09/02/24 14:41
09/02/24 14:41
Vital Signs
Initial and Last Documented VS:
Initial Vital Signs
Temp Pulse Resp BP Pulse Ox
98.6 F 104 16 129/75 99
09/02/24 14:31 09/02/24 14:31 09/02/24 14:31 09/02/24 14:31 09/02/24 14:31
Last Documented Vital Signs
Temp Pulse Resp BP Pulse Ox
98.6 F 82 18 152/70 99
09/02/24 14:31 09/02/24 15:50 09/02/24 15:50 09/02/24 15:49 09/02/24 14:31
MDM/Problems Addressed
Differential Diagnosis Includes:
Patient to ED with complaint of rectal bleeding. Discharged 2 days ago after inpatient stay for same. Bleeding diverticuli seen on colonoscoy Site clipped. He received mulitpe transfusions while here. Discharge Hgb 9.1, today 8.7. Rectal exam
today reveals soft maroon colored stools, heme +. VSS. He reporst feeling weak but no other complaints. Will admit to hospitalist for rectal bleeding..
*Critical Care Note
Total Time (30-74mins, 75-104mins- exclusive of procedures): Not Applicable
ED Attending Note
-
Portions of this chart may have been created with voice recognition software.� Occasional wrong word or��sound alike� substitutions may have occurred due to the inherent limitations of voice recognition software.
Discharge Plan
Departure
Patient Disposition: Admit
Date of Disposition: 09/02/24
Time of Disposition: 16:08
Presentation/result/management discussed w/ accepting MD/DO: Hospitalist
Condition: Fair
Covid-19: Not Applicable
Discharge Problem:
Rectal bleeding
Prescriptions:
No Action
tamsulosin [Flomax] 0.4 mg Capsule
0.4 mg PO DAILY
ascorbic acid (vitamin C) [Vitamin C] 1,000 mg Tablet
1,000 mg PO DAILY
acetaminophen [Tylenol] 325 mg Tablet
650 mg PO Q4HPRN PRN (Reason: mild pain)
Tums 300 mg (750 mg) Tablet,Chewable
900 mg PO BIDPRN PRN (Reason: gerd)
famotidine [Pepcid] 20 mg Tablet
40 mg PO HS
calcium polycarbophil [FiberCon] 625 mg Tablet
625 mg PO DAILY
bismuth subsalicylate [Pepto-Bismol] 262 mg Tablet,Chewable
2 tab PO DAILYPRN PRN (Reason: gerd)
losartan 100 mg Tablet
100 mg PO DAILY
rosuvastatin [Crestor] 5 mg Tablet
5 mg PO DAILY
Visbiome 112.5 billion cell Capsule
1 cap PO DAILY
cyanocobalamin (vitamin B-12) 3,000 mcg Capsule
3,000 mcg PO DAILY
pantoprazole 40 mg tablet,delayed release (DR/EC)
40 mg PO DAILY 28 Days Qty: 28 0RF
cetirizine 10 mg Capsule
10 mg PO DAILY
Rx Instructions:
takes daily at night
ferrous sulfate [FeroSul] 325 mg (65 mg iron) Tablet
325 mg PO DAILY Qty: 0 0RF
cholecalciferol (vitamin D3) 25 mcg (1,000 unit) Tablet
25 mcg PO DAILY Qty: 0 0RF
Interventions
Interventions:
*Risk Screen - Suicide Last Done: 09/02/24 14:31
*General Assessment Last Done: 09/02/24 14:31
*Neglect/Abuse Screening Last Done: 09/02/24 14:31
ED- Fall Risk Assessment Last Done: 09/02/24 15:50
*ED COVID-19 Vaccine History Last Done: 09/02/24 14:31
FF-Wwojbl-Rctneyfnfa Assessment Last Done: 09/02/24 15:50
ED- Cardiac Assessment Last Done: 09/02/24 15:50
ED- Pulmonary Assessment Last Done: 09/02/24 15:50
Discharge Date and Time
Print Language: GREENLANDIC
[2024-09-02] MEDS: NSS 1000 IV (16:21)
--- NOTE | 2024-09-02 16:53 | HPS.HSE ---
Family Physician
-
Family Physician: Joselito Gonzalez
Chief Complaint
-
rectal bleeding
History of Present Illness
69-year-old male past medical history of diverticulosis status post clipping, prostate cancer, hypercholesteremia, hypertension presenting with rectal bleeding. Patient was discharged 2 days ago for rectal bleeding. Patient colonoscopy which
showed diverticulosis which was clipped. Patient required 4 units of blood.
Patient felt dizzy yesterday. Today he had bright red blood per rectum not as much as last time. Denies any chest pain he has slight shortness of breath. Denies any abdominal pain or nausea or vomiting.
Drinks alcohol on occasion. Denies smoking.
Medical History
Past Medical History
Past Medical History: Reports Other (diverticulosis status post clipping, prostate cancer, hypercholesteremia, hypertension)
Past Surgical History: Reports None
Social History
Tobacco: Non-smoker
Alcohol: Occasional
Drug: None
Family History
Family History: Not pertinent
Allergies / Home Medications
Allergies reflects when Allergies were last updated in [facility].
Home Medications with original date entered in [facility]
Allergy/Medication List:
Allergies
Allergy/AdvReac Type Severity Reaction Status Date / Time
Penicillins Allergy Unknown Verified 09/02/24 14:33
Home Medications
Lactobac no.2-Bifidobac no.1-S. thermo 112.5 billion cell capsule (Visbiome) 1 cap PO DAILY probiotic 08/25/24
acetaminophen 325 mg tablet (Tylenol) 650 mg PO Q4HPRN PRN mild pain 08/25/24
ascorbic acid (vitamin C) 1,000 mg tablet (Vitamin C) 1,000 mg PO DAILY Supplement 08/25/24
bismuth subsalicylate 262 mg chewable tablet (Pepto-Bismol) 2 tab PO DAILYPRN PRN gerd 08/25/24
calcium carbonate (Tums) 900 mg PO BIDPRN PRN gerd 08/25/24
calcium polycarbophil 625 mg tablet (FiberCon) 625 mg PO DAILY Constipation 08/25/24
cyanocobalamin (vitamin B-12) 3,000 mcg capsule 3,000 mcg PO DAILY Supplement 08/25/24
famotidine 20 mg tablet (Pepcid) 40 mg PO HS Gastrointestinal Issue 08/25/24
losartan 100 mg tablet 100 mg PO DAILY Blood Pressure 08/25/24
rosuvastatin 5 mg tablet (Crestor) 5 mg PO DAILY High Cholesterol 08/25/24
tamsulosin 0.4 mg capsule (Flomax) 0.4 mg PO DAILY Urinary Issue 08/25/24
pantoprazole 40 mg tablet,delayed release 40 mg PO DAILY 4 weeks #28 tabs 08/27/24
cetirizine 10 mg capsule 10 mg PO HS 08/30/24
cholecalciferol (vitamin D3) 25 mcg (1,000 unit) tablet 25 mcg PO DAILY vit d Def #0 tabs 08/31/24
ferrous sulfate 325 mg (65 mg iron) tablet (FeroSul) 325 mg PO DAILY anemia #0 tabs 08/31/24
Review of Systems
-
History Source: Patient
A 12 point ROS was completed and negative except as noted: Yes
Constitutional: Reports No Symptoms
EENT: Reports No Symptoms
Respiratory: Reports No Symptoms
Cardiac: Reports No Symptoms
Abdomen/GI: Reports See HPI
: Reports No Symptoms
Musculoskeletal: Reports No Symptoms
Skin: Reports No Symptoms
Neurological: Reports No Symptoms
Endocrine: Reports No Symptoms
Hematologic/Lymphatic: Reports No Symptoms
Psych: Reports No Symptoms
Physical Exam
Vital Signs
Vital Signs
Temp Pulse Resp BP Pulse Ox
98.6 F 82 18 152/70 99
09/02/24 14:31 09/02/24 15:50 09/02/24 15:50 09/02/24 15:49 09/02/24 14:31
Physical Exam
General: Well Developed, Well Nourished and No Apparent Distress
HEENT: NormoCephalic, Moist mucous membranes and Atraumatic
Respiratory: Clear
Cardiac: S1/S2 and Regular Rhythm; No Murmur or Rub
GI: Soft, Non Tender, Non Distended and Normal Bowel Sounds; No Organomegaly
Rectal: Deferred by Provider
Musculoskeletal: No Clubbing, No Cyanosis and No Edema
Skin: No Rash
Neuro: Nonfocal/grossly intact
Laboratory Results
-
09/02/24 14:41
09/02/24 14:41
Laboratory Results
Total Bilirubin 0.4 mg/dl (0.2-1.3) 09/02/24 14:41
AST 22 U/L (17-59) 09/02/24 14:41
ALT 21 U/L (0-50) 09/02/24 14:41
Alkaline Phosphatase 57 U/L (38-126) 09/02/24 14:41
Data Reviewed
-
Lab Data: Labs Reviewed by me
Old Records: Reviewed
Impression/Plan
-
IMPRESSION:
PLAN:
# Rectal bleeding likely recurrent diverticular bleeding, previously clipped on 08/27
# Chronic normocytic anemia
-Hemoglobin 8.7 from 9
-Bleeding resolved
-Type and screen
-IV fluids given
-Clear liquid diet, n.p.o. past midnight
-CTA for recurrent bleeding
-GI consulted
Essential hypertension
-Hold losartan
GERD/dyspepsia
History of erosive esophagitis/Sewell's esophagus
-Continue Protonix, famotidine, Pepto-Bismol
Prostate cancer
-Continue tamsulosin
Hyperlipidemia
Vitamin D deficiency
Full code
DVT prophylaxis�SCDs
N.p.o. past midnight
--- NOTE | 2024-09-02 19:26 | PTCARENOTE ---
pt had large dark maroon colored bowel movement, states he feels asymptomatic. plan of care ongoing
[2024-09-02] MEDS: ZYRTEC 10 MG PO (21:03)
[2024-09-02] MEDS: PEPCID 40 MG PO (21:03)
[2024-09-03] VITALS (9 sets, daily range): BP systolic 114–160; BP diastolic 61–87
[2024-09-03 08:09] LABS: % Basophils 0.5 % (0-2); % Eosinophils 4.9 % (0-6); % Immature Granulocytes 0.7 % (0-0.5); % Lymphocytes 31.3 % (20.5-51.1); % Neutrophils 53.6 % (42.2-75.2); Absolute Eosinophils 0.3 10^3/uL (0-0.7); Absolute Lymphocytes 1.8 10^3/uL (1.2-3.4); Absolute Monocytes 0.5 10^3/uL (0.1-0.6); Hematocrit 24.9 % (39.0-52.0); Hemoglobin 7.8 g/dL (13.0-18.0); Mean Corp Hgb Conc. 31.3 g/dL (33.0-37.0); Mean Corpuscular Hgb 29.5 pg (27.0-31.0); Mean Corpuscular Volume 94.3 fL (80.0-94.0); Mean Platelet Volume 9.8 fL (7.4-10.4); Nucleated Red Blood Cells % 0 % (-); Platelet Count 228 10^3/uL (130-400); Red Blood Cell Count 2.64 10^6/uL (4.70-6.10); Red Cell Dist. Width 15.5 % (11.5-14.5); White Blood Cell Count 5.7 10^3/uL (4.8-10.8)
[2024-09-03 08:44] LABS: ALT (SGPT) 20 U/L (0-50); AST (SGOT) 19 U/L (17-59); Albumin 3.2 g/dl (3.5-5.0); Alkaline Phosphatase 47 U/L (38-126); Blood Urea Nitrogen 13 mg/dl (9-20); Carbon Dioxide 23 mmol/L (22-30); Chloride 108 mmol/L (98-107); Estimated Creatinine Clearance 93 ml/min; Glucose 104 mg/dl (70-99); Sodium 140 mmol/L (135-145); Total Bilirubin 0.4 mg/dl (0.2-1.3); Total Protein 5.6 g/dl (6.3-8.2); eGFR > 60.00
[2024-09-03] MEDS: CRESTOR 5 MG PO (08:45)
[2024-09-03] MEDS: FIBERCON PO (08:49)
[2024-09-03] MEDS: VITAMIN B-12 3000 MCG PO (08:53)
[2024-09-03] MEDS: PROTONIX 40 MG PO (08:53)
[2024-09-03] MEDS: VITAMIN C 1000 MG PO (08:53)
[2024-09-03] MEDS: VITAMIN D3 (cholecalciferol) 25 MCG PO (08:54)
[2024-09-03] MEDS: FEOSOL 325 MG PO (08:54)
[2024-09-03] MEDS: FLOMAX 0.4 MG PO (08:54)
--- NOTE | 2024-09-03 09:31 | W.PN.HOSP.TC ---
Today's Communication/Plan
-
See plan
Assessment / Plan
Assessment / Plan
Impression:
Hematochezia
Acute blood loss anemia.
Recent hospitalization with diverticular bleed involving colonoscopy 08/27 with diverticular clip with acute blood loss anemia required transfusion total of 4 units transfused.
Other conditions:
GERD/dyspepsia
Prostate cancer managed with watchful waiting
Dyslipidemia
Vitamin D deficiency
Plan:
Hematochezia suspect lower GI source.
Recent colonoscopy with diverticular
Acute blood loss anemia, felt dizzy prior to admission, although hemodynamically stable. Hemoglobin down to 7.8.
Without upper GI symptoms
Normal BUN
Transfuse 2 units of packed red blood cells and follow hemoglobin.
CTA.
GI consultation.
Hold valsartan with anticipation of possible hypotension with acute blood loss.
N.p.o.
GERD with history of erosive esophagitis and Sewell's
Continue bismuth, calcium carbonate, famotidine, PPI
Prostate carcinoma. Monitored by urology with watchful waiting. On Flomax.
Dyslipidemia. Continue statin
Anticipated Discharge: 24 - 48 hours
Subjective/Interval History
-
Date of Service: September 03, 2024
Objective Data
-
Labs:
Laboratory Results
09/03/24 09/03/24
06:42 17:00
WBC 5.7
Hgb 7.8 L Pending
Hct 24.9 L
Plt Count 228
Sodium 140
Potassium 4.0
Chloride 108 H
Carbon Dioxide 23
BUN 13
Creatinine 0.8
Glucose 104 H
Calcium 8.0 L
Total Bilirubin 0.4
AST 19
ALT 20
Alkaline Phosphatase 47
Vital Signs:
Vital Signs
Temp Pulse Resp BP Pulse Ox
98.1 F 76 18 114/62 98
09/03/24 07:47 09/03/24 07:47 09/03/24 07:47 09/03/24 07:47 09/03/24 07:47
Physical Exam
-
General: Well Developed and No Apparent Distress
HEENT: Normocephalic, Atraumatic and Moist Mucous Membranes
Respiratory: Clear to Auscultation
Cardiac: Regular Rhythm and S1/S2; Negative Murmur, Rub or Gallop
GI: Soft, Nontender, Nondistended and Normal Bowel Sounds; Negative Organomegaly
Rectal: Deferred by Provider
Musculoskeletal: No Clubbing, No Cyanosis and No Edema
Skin: Negative Rash
Neuro: Nonfocal/Grossly Intact
[2024-09-03] MEDS: VISBIOME 1 CAP PO (09:39)
--- NOTE | 2024-09-03 09:44 | PTCARENOTE ---
Patient with episode of bright red blood per rectum this morning. Patient stated that he had 2 additional episodes last night. Vital signs stable and patient asymptomatic. Hospitalist notified. Type and screen ordered and packed RBCs ordered.
Patient with continued complaints of 'heating' issue. Director in to see patient and told patient he will be transferred to third floor. Patient anxiously awaiting transfer.
--- NOTE | 2024-09-03 13:18 | CON.GI ---
Addendum entered and electronically signed by Ankit Cedillo MD 09/03/24 14:22:
I saw and examined the patient.
The HEAVY LIFT RIGGER's note was reviewed and I agree with the note.
-- Lower GI bleeding. Recent hospital admission with diverticular bleeding-discharged 04/30/2024. S/p colonoscopy 08/27 with placement of endoclips(site of recent bleeding). CTA 09/03-no active bleeding
plan
Clear liquid diet
Continue monitor H&H
If significant bleeding persist will consider repeat colonoscopy.
On discharge -as per Dr. Schaeffer patient requires repeat colonoscopy within 6 months -removal of previously noted small polyps
Original Note:
Consultation
-
Date/Time Consultation Requested: 09/03/24 0909
Date/Time Consultation Performed: 09/03/24 1245
Requesting Provider: Dr. Panchal
Performing Provider: Dr. Cedillo/TANNA Bocanegra
Reason for Consultation: GI Bleed
Medical History
Chief Complaint / HPI
Chief Complaint: Rectal bleeding
History of Present Illness:
69 year old male with a PMH of hypertension, hyperlipidemia, GERD, allergic rhinitis, H/O prostate cancer, lower GI bleed on 08/25/24 from sigmoid diverticulosis s/p colonoscopy on 08/27/24 with clips placed who was subsequently DC on 08/31/24 after
having brown solid BM. During that hospitalization he required transfusion of 4 units PRBC and DC Hgb was 9.0. He states that he was doing well for 24 hours then he started to feel a little lightheaded. He had normal BMs during that time. He was
eating and drinking normally. On Saturday around 1:30 pm he had episode of brown stool with maroon blood mixed in it.Was found to have a hemoglobin of 8.7. He proceeded to have 2 more bloody bowel movements overnight. Hemoglobin this morning was
7.8. He did have another episode of bright red blood per rectum. He is receiving 1 unit of packed red blood cells out of 2 currently. He had a CTA abdomen and pelvis that was negative for signs of active bleeding. The patient has normal vital
signs. He denies any fevers, chills, nausea, vomiting, melena, dysphagia or odynophasia. No early satiety or unintentional weight loss. He denies any NSAIDs.
Past Medical History
Past Medical History: GERD, HTN, Hypercholesterolemia and Other (prostate cancer no radiotherapy )
Past Surgical History: Other (orthopedic(knee arthroplasty, wrist surgery) )
Social History
Tobacco: Non-Smoker
Alcohol: Occasional
Drug: None
Personal:
Living: With Family
Employment: Retired
Family History
Family History: Reviewed & Not Pertinent
Allergies / Home Medications
Allergy/AdvReac Type Severity Reaction Status Date / Time
Penicillins Allergy Unknown Verified 09/02/24 14:33
�Medication �Instructions �Recorded
Lactobac no.2-Bifidobac no.1-S. 1 cap PO DAILY probiotic 08/25/24
thermo 112.5 billion cell capsule
(Visbiome)
acetaminophen 325 mg tablet 650 mg PO Q4HPRN PRN mild pain 08/25/24
(Tylenol)
ascorbic acid (vitamin C) 1,000 mg 1,000 mg PO DAILY Supplement 08/25/24
tablet (Vitamin C)
bismuth subsalicylate 262 mg 2 tab PO DAILYPRN PRN gerd 08/25/24
chewable tablet (Pepto-Bismol)
calcium carbonate (Tums) 900 mg PO BIDPRN PRN gerd 08/25/24
calcium polycarbophil 625 mg 625 mg PO DAILY Constipation 08/25/24
tablet (FiberCon)
cyanocobalamin (vitamin B-12) 3,000 mcg PO DAILY Supplement 08/25/24
3,000 mcg capsule
famotidine 20 mg tablet (Pepcid) 40 mg PO HS Gastrointestinal Issue 08/25/24
losartan 100 mg tablet 100 mg PO DAILY Blood Pressure 08/25/24
rosuvastatin 5 mg tablet (Crestor) 5 mg PO DAILY High Cholesterol 08/25/24
tamsulosin 0.4 mg capsule (Flomax) 0.4 mg PO DAILY Urinary Issue 08/25/24
pantoprazole 40 mg tablet,delayed 40 mg PO DAILY 4 weeks #28 tabs 08/27/24
release
cetirizine 10 mg capsule 10 mg PO HS 08/30/24
cholecalciferol (vitamin D3) 25 25 mcg PO DAILY vit d Def #0 tabs 08/31/24
mcg (1,000 unit) tablet
ferrous sulfate 325 mg (65 mg 325 mg PO DAILY anemia #0 tabs 08/31/24
iron) tablet (FeroSul)
Review of Systems
-
All other systems: A 12 pt ROS was Negative except as stated above in HPI
Vital Signs
Temp Pulse Resp BP Pulse Ox
98.3 F 79 16 121/61 98
09/03/24 12:04 09/03/24 12:04 09/03/24 12:04 09/03/24 12:04 09/03/24 07:47
Physical Exam
Exam
General: No Apparent Distress
HEENT: Anicteric
Respiratory: Clear
Cardiac: Regular Rhythm
GI: Soft, Non Tender, Non Distended and Normal Bowel Sounds
Skin: Warm and Dry
Neuro: AO x 3
Psych: Calm
Results
WBC 5.7 10^3/uL (4.8-10.8) 09/03/24 06:42
Hgb 7.8 g/dL (13.0-18.0) L 09/03/24 06:42
Hct 24.9 % (39.0-52.0) L 09/03/24 06:42
MCV 94.3 fL (80.0-94.0) H 09/03/24 06:42
Plt Count 228 10^3/uL (130-400) 09/03/24 06:42
Absolute Neuts (auto) 3.0 10^3/uL (1.4-6.5) 09/03/24 06:42
Sodium 140 mmol/L (135-145) 09/03/24 06:42
Potassium 4.0 mmol/L (3.5-5.1) 09/03/24 06:42
Chloride 108 mmol/L (98-107) H 09/03/24 06:42
Carbon Dioxide 23 mmol/L (22-30) 09/03/24 06:42
BUN 13 mg/dl (9-20) 09/03/24 06:42
Creatinine 0.8 mg/dL (0.7-1.3) 09/03/24 06:42
Calcium 8.0 mg/dl (8.4-10.2) L 09/03/24 06:42
Total Bilirubin 0.4 mg/dl (0.2-1.3) 09/03/24 06:42
AST 19 U/L (17-59) 09/03/24 06:42
ALT 20 U/L (0-50) 09/03/24 06:42
Alkaline Phosphatase 47 U/L (38-126) 09/03/24 06:42
Diagnostic Image Results:
Prior GI Procedures:
EGD: Never had
Colonoscopy: 08/27 colonoscopy - The examined portion of the ileum was normal.
- Diverticulosis in the entire examined colon.
- Mild diverticulosis in the sigmoid colon. There was
evidence of recent bleeding from the diverticular
opening. Clips (MR conditional) were placed. Clip
medical insurance coder: [employer].
- Non-bleeding internal hemorrhoids.
- No specimens collected.
Assessment / Plan
-
69 year old male with a PMH of hypertension, hyperlipidemia, GERD, allergic rhinitis, H/O prostate cancer, lower GI bleed on 08/25/24 from sigmoid diverticulosis s/p colonoscopy on 08/27/24 with clips placed who was subsequently DC on 08/31/24 after
having brown solid BM. During that hospitalization he required transfusion of 4 units PRBC and DC Hgb was 9.0. (08/31/24). Patient returns to the emergency room on 09/02/2024 at approximately 1:30 PM after having recurrent episode of lower GI
bleeding. Since that time patient had 4 total episodes of bright red blood per rectum. His hemoglobin went from 8.7 on admission down to 7.8. Currently he is receiving 1 unit packed red blood cells out of 2. CTA abdomen and pelvis negative for
signs of active bleeding. Vital signs are stable. Patient denies any chest pain, shortness of breath, diaphoresis or abdominal pain.
Impression:
Lower GI Bleed, recent diverticular bleed (Signs of recent bleeding diverticular opening sigmoid colon with 2 clips placed via colonoscopy on 08/27/2024)
Plan:
-Transfuse as needed to keep Hgb > 7
-Ok for clear liquids, no red
-Monitor Hgb
-Call with any increased bleeding or change in vitals. Discussed with RN.
-Further recommendations to be forthcoming.
-
-
Thank you for consultation and allowing me to participate in the patient's care. Please call the pulmonary function technician GI physician during the after hours with any questions or concerns.
[2024-09-03] MEDS: PEPCID 40 MG PO (21:41)
[2024-09-03] MEDS: ZYRTEC 10 MG PO (21:41)
[2024-09-04 08:35] LABS: % Basophils 0.7 % (0-2); % Eosinophils 5.4 % (0-6); % Immature Granulocytes 0.2 % (0-0.5); % Lymphocytes 27.4 % (20.5-51.1); % Monocytes 10.3 % (1.7-9.3); Absolute Eosinophils 0.2 10^3/uL (0-0.7); Absolute Lymphocytes 1.2 10^3/uL (1.2-3.4); Absolute Monocytes 0.5 10^3/uL (0.1-0.6); Absolute Neutrophils 2.5 10^3/uL (1.4-6.5); Hematocrit 24.3 % (39.0-52.0); Hemoglobin 7.8 g/dL (13.0-18.0); Mean Corp Hgb Conc. 32.1 g/dL (33.0-37.0); Mean Corpuscular Hgb 29.7 pg (27.0-31.0); Mean Corpuscular Volume 92.4 fL (80.0-94.0); Mean Platelet Volume 9.3 fL (7.4-10.4); Nucleated Red Blood Cells % 0 % (-); Platelet Count 196 10^3/uL (130-400); Red Blood Cell Count 2.63 10^6/uL (4.70-6.10); Red Cell Dist. Width 14.9 % (11.5-14.5); White Blood Cell Count 4.5 10^3/uL (4.8-10.8)
[2024-09-04 08:38] VITALS: BP 122/66
[2024-09-04 09:14] LABS: Blood Urea Nitrogen 12 mg/dl (9-20); Calcium 7.9 mg/dl (8.4-10.2); Carbon Dioxide 23 mmol/L (22-30); Chloride 106 mmol/L (98-107); Estimated Creatinine Clearance 83 ml/min; Glucose 100 mg/dl (70-99); Potassium 3.8 mmol/L (3.5-5.1); Sodium 139 mmol/L (135-145); eGFR > 60.00
[2024-09-04] MEDS: VISBIOME 1 CAP PO (09:53)
[2024-09-04] MEDS: FEOSOL 325 MG PO (09:53)
[2024-09-04] MEDS: VITAMIN B-12 3000 MCG PO (09:53)
[2024-09-04] MEDS: PROTONIX 40 MG PO (09:53)
[2024-09-04] MEDS: VITAMIN C 1000 MG PO (09:53)
[2024-09-04] MEDS: VITAMIN D3 (cholecalciferol) 25 MCG PO (09:54)
[2024-09-04] MEDS: FLOMAX 0.4 MG PO (09:54)
[2024-09-04] MEDS: CRESTOR 5 MG PO (09:56)
[2024-09-04] MEDS: FIBERCON 625 MG PO (11:22)
[2024-09-04 15:51] VITALS: BP 127/71
--- NOTE | 2024-09-04 17:04 | W.PN.HOSP.TC ---
Today's Communication/Plan
-
Clear liquid diet
Monitor hemoglobin
Assessment / Plan
Assessment / Plan
Impression:
Hematochezia
Acute blood loss anemia.
Recent hospitalization with diverticular bleed involving colonoscopy 08/27 with diverticular clip with acute blood loss anemia required transfusion total of 4 units transfused.
Other conditions:
GERD/dyspepsia
Prostate cancer managed with watchful waiting
Dyslipidemia
Vitamin D deficiency
Plan:
Hematochezia suspect lower GI source.
Recent colonoscopy with diverticular
Acute blood loss anemia, felt dizzy prior to admission, although hemodynamically stable. Hemoglobin down to 7.8.
Without upper GI symptoms
Normal BUN
Status post 2 units packed red blood cells transfused on 09/03 baseline hemoglobin 7.8�9 0.0�7.8
CTA on 09/03 with no active bleeding.
Clinically with no active bleeding since admission with 1 small BM with remnants of maroon-colored blood
Currently no indication for colonoscopy
Advance to clear liquid diet and monitor
GERD with history of erosive esophagitis and Sewell's
Continue bismuth, calcium carbonate, famotidine, PPI
Prostate carcinoma. Monitored by urology with watchful waiting. On Flomax.
Dyslipidemia. Continue statin
Anticipated Discharge: 24 - 48 hours
Subjective/Interval History
-
Date of Service: September 04, 2024
Objective Data
-
Labs:
Laboratory Results
09/04/24
08:11
WBC 4.5 L
Hgb 7.8 L
Hct 24.3 L
Plt Count 196
Sodium 139
Potassium 3.8
Chloride 106
Carbon Dioxide 23
BUN 12
Creatinine 0.9
Glucose 100 H
Calcium 7.9 L
Vital Signs:
Vital Signs
Temp Pulse Resp BP Pulse Ox
99.1 F 74 16 127/71 98
09/04/24 15:51 09/04/24 15:51 09/04/24 15:51 09/04/24 15:51 09/04/24 15:51
I&O
09/03/24 09/04/24 09/05/24
06:59 06:59 06:59
Intake Total 700 / 700 960 / 960
Balance 700 / 700 960 / 960
Physical Exam
-
General: Well Developed and No Apparent Distress
HEENT: Normocephalic, Atraumatic and Moist Mucous Membranes
Respiratory: Clear to Auscultation
Cardiac: Regular Rhythm and S1/S2; Negative Murmur, Rub or Gallop
GI: Soft, Nontender, Nondistended and Normal Bowel Sounds; Negative Organomegaly
Rectal: Deferred by Provider
Musculoskeletal: No Clubbing, No Cyanosis and No Edema
Skin: Negative Rash
Neuro: Nonfocal/Grossly Intact
--- NOTE | 2024-09-04 17:14 | W.PN.GI.CBS2 ---
Today's Communication / Plan
-
Transfuse 1u PRBC
Golytle NPO at [facility] for colonoscopy tomorrow
Assessment / Plan
-
69 year old male with a PMH of hypertension, hyperlipidemia, GERD, allergic rhinitis, H/O prostate cancer, lower GI bleed on 08/25/24 from sigmoid diverticulosis s/p colonoscopy on 08/27/24 with clips placed who was subsequently DC on 08/31/24 after
having brown solid BM. During that hospitalization he required transfusion of 4 units PRBC and DC Hgb was 9.0. (08/31/24). Patient returns to the emergency room on 09/02/2024 at approximately 1:30 PM after having recurrent episode of lower GI
bleeding. Since that time patient had 4 total episodes of bright red blood per rectum. His hemoglobin went from 8.7 on admission down to 7.8. Currently he is receiving 1 unit packed red blood cells out of 2. CTA abdomen and pelvis negative for
signs of active bleeding. Vital signs are stable. Patient denies any chest pain, shortness of breath, diaphoresis or abdominal pain.
Impression:
Lower GI Bleed, recent diverticular bleed (Signs of recent bleeding diverticular opening sigmoid colon with 2 clips placed via colonoscopy on 08/27/2024)
Plan:
-Transfuse another unit of blood today
-Golytle prep tonight
-Ok for clear liquids, no red. NPO at [facility] for planned colonoscopy tomorrow
-Monitor Hgb
Will follow with you
Subjective
Subjective
Date of Service: September 04, 2024
Reports passing 3 episodes of bloody hematochezia today. Denies abd pain. Tolerating CLD
Objective
Data Reviewed
Laboratory Data:
Laboratory Results
09/04/24 08:11
09/04/24 08:11
Laboratory Results
Total Bilirubin 0.4 mg/dl (0.2-1.3) 09/03/24 06:42
AST 19 U/L (17-59) 09/03/24 06:42
ALT 20 U/L (0-50) 09/03/24 06:42
Alkaline Phosphatase 47 U/L (38-126) 09/03/24 06:42
Vital Signs and I&O:
Vital Signs
Temp Pulse Resp BP Pulse Ox
99.1 F 74 16 127/71 98
09/04/24 15:51 09/04/24 15:51 09/04/24 15:51 09/04/24 15:51 09/04/24 15:51
I&O
09/03/24 09/04/24 09/05/24
06:59 06:59 06:59
Intake Total 700 / 700 960 / 960
Balance 700 / 700 960 / 960
Physical Exam
Physical Exam
GEN: No acute distress, conversant, pleasant
HEENT: anicteric, extraocular movements intact, clear oropharynx without exudates
GI: soft, non-distended, not tender to palpation, normal active bowel sounds, no hepatosplenomegaly
EXT: warm, well perfused, no edema bilaterally
NEURO: AAOx3, non-focal
--- NOTE | 2024-09-04 17:48 | CM ---
Alert awake oriented patient who lives with his Tiki who lives in a 2 story home with 1 step to enter and 14 steps to bed and bathroom. He is independent in driving and in all activities of daily living.He was offered VN he declined
need.Awaiting GI MD .
No VN hx / No SNF history
Pharmacy [facility]
PCP DR Henok Ellis
PLAN Home Declined VN
--- NOTE | 2024-09-04 19:45 | PTCARENOTE ---
Assumed care of patient from previous RN - during rounds, patient inquiring about colonoscopy timing tomorrow and as to when he would be receiving his blood products this evening. Informed patient that there is still no scheduled time for
colonoscopy and that MD is currently changing orders for GI prep. Patient requested Mirilax/gatorade prep -- awaiting new orders at this time. Patient alert and oriented, no BM as of yet this shift. No complaints. Call elder in reach, will continue
to monitor.
--- NOTE | 2024-09-04 22:00 | PTCARENOTE ---
GI prep started -- no BM since prior to change of shift. Patient with no complaints at this time. Call elder in reach. Will continue to monitor.
[2024-09-04] MEDS: PEPCID 40 MG PO (22:09)
[2024-09-04] MEDS: ZYRTEC 10 MG PO (22:09)
[2024-09-04] MEDS: GAVILAX 238 GM PO (22:22)
[2024-09-04 23:09] VITALS: BP 131/61
[2024-09-04 23:24] VITALS: BP 125/59
--- NOTE | 2024-09-04 23:54 | PTCARENOTE ---
1 unit PRBCs ordered for patient. Patient attempted to have BM prior to start of infusion -- small amount liquid stool with red blood/sediment present. Infusion started, VSS. Approx 1 hour after start of infusion, patient had large amount
liquid/bloody stool -- red/burgundy in color. No complaints, asymptomatic, blood transfusing. Patient back to bed, call elder in reach. Will monitor closely.
[2024-09-05 01:23] VITALS: BP 132/75
--- NOTE | 2024-09-05 01:28 | PTCARENOTE ---
Patient now with 3 episodes large amount burgundy/maroon blood per rectum since change of shift, completed GI prep for colonoscopy tomorrow. 1 unit PRBCs at completion. Patient is expressing concern that it seems to him he is having significantly
more bleeding as compared to amount of bleeding following GI prep last week on Saturday. VSS -- BP 132/75, HR 72, asymptomatic. Notified TANNA Prater -- post blood H&H ordered. Patient is resting in bed, no complaints at this time, call elder
in reach. Will continue to monitor.
[2024-09-05 02:07] VITALS: BP 134/67
[2024-09-05 02:55] LABS: Hematocrit 27.8 % (39.0-52.0); Mean Corp Hgb Conc. 32.4 g/dL (33.0-37.0); Mean Corpuscular Volume 92.7 fL (80.0-94.0); Mean Platelet Volume 9.1 fL (7.4-10.4); Platelet Count 200 10^3/uL (130-400); White Blood Cell Count 5.4 10^3/uL (4.8-10.8)
[2024-09-05 07:00] VITALS: BP 119/65
[2024-09-05] MEDS: FIBERCON 625 MG PO (08:40)
[2024-09-05] MEDS: VITAMIN B-12 3000 MCG PO (08:40)
[2024-09-05] MEDS: CRESTOR 5 MG PO (08:40)
[2024-09-05] MEDS: VITAMIN C 1000 MG PO (08:40)
[2024-09-05] MEDS: VITAMIN D3 (cholecalciferol) 25 MCG PO (08:40)
[2024-09-05] MEDS: PROTONIX 40 MG PO (08:40)
[2024-09-05] MEDS: VISBIOME 1 CAP PO (08:40)
[2024-09-05] MEDS: FEOSOL 325 MG PO (08:41)
[2024-09-05] MEDS: FLOMAX 0.4 MG PO (08:41)
[2024-09-05 08:57] LABS: Hematocrit 29.4 % (39.0-52.0); Hemoglobin 9.4 g/dL (13.0-18.0); Mean Corpuscular Hgb 29.5 pg (27.0-31.0); Mean Corpuscular Volume 92.2 fL (80.0-94.0); Mean Platelet Volume 9.2 fL (7.4-10.4); Platelet Count 234 10^3/uL (130-400); Red Blood Cell Count 3.19 10^6/uL (4.70-6.10); Red Cell Dist. Width 15.3 % (11.5-14.5); White Blood Cell Count 5.5 10^3/uL (4.8-10.8)
[2024-09-05] MEDS: GAVILAX 238 GM PO (11:05)
--- NOTE | 2024-09-05 13:11 | W.PN.GI.CBS2 ---
Today's Communication / Plan
-
To complete colonic cleanse tomorrow
Cscope tomorrow--told him 2x do not know time yet
Assessment / Plan
-
69 year old male with a PMH of hypertension, hyperlipidemia, GERD, allergic rhinitis, H/O prostate cancer, lower GI bleed on 08/25/24 from sigmoid diverticulosis s/p colonoscopy on 08/27/24 with clips placed who was subsequently DC on 08/31/24 after
having brown solid BM. During that hospitalization he required transfusion of 4 units PRBC and DC Hgb was 9.0. (08/31/24). Patient returns to the emergency room on 09/02/2024 at approximately 1:30 PM after having recurrent episode of lower GI
bleeding. Since that time patient had 4 total episodes of bright red blood per rectum. His hemoglobin went from 8.7 on admission down to 7.8. Currently he is receiving 1 unit packed red blood cells out of 2. CTA abdomen and pelvis negative for
signs of active bleeding. Vital signs are stable. Patient denies any chest pain, shortness of breath, diaphoresis or abdominal pain.
Impression:
Lower GI Bleed, recent diverticular bleed (Signs of recent bleeding diverticular opening sigmoid colon with 2 clips placed via colonoscopy on 08/27/2024)
Plan:
- Serial H/H thus far stable
- Monitor stool output
- To complete miralax/gatorade prep today
- NPO at [facility] for [facility] tomorrow
Will follow with you
Subjective
Subjective
Date of Service: September 05, 2024
Only drank 2L of gatorade/miralax prep. Declined golytle. Denies abd pain, nausea/vomiting.
Objective
Data Reviewed
Laboratory Data:
Laboratory Results
09/04/24 08:11
Laboratory Results
Total Bilirubin 0.4 mg/dl (0.2-1.3) 09/03/24 06:42
AST 19 U/L (17-59) 09/03/24 06:42
ALT 20 U/L (0-50) 09/03/24 06:42
Alkaline Phosphatase 47 U/L (38-126) 09/03/24 06:42
Vital Signs and I&O:
Vital Signs
Temp Pulse Resp BP Pulse Ox
98 F 75 16 119/65 98
09/05/24 07:00 09/05/24 07:00 09/05/24 07:00 09/05/24 07:00 09/05/24 07:00
I&O
09/04/24 09/05/24 09/06/24
06:59 06:59 06:59
Intake Total 700 / 700 2810 / 2810
Balance 700 / 700 2810 / 2810
Physical Exam
Physical Exam
GEN: No acute distress, conversant, pleasant
HEENT: anicteric, extraocular movements intact, clear oropharynx without exudates
GI: soft, non-distended, not tender to palpation, normal active bowel sounds, no hepatosplenomegaly
EXT: warm, well perfused, trace edema bilaterally
NEURO: AAOx3, non-focal
--- NOTE | 2024-09-05 13:53 | W.PN.HOSP.TC ---
Today's Communication/Plan
-
colonoscopy 09/06
Assessment / Plan
Assessment / Plan
Impression:
Hematochezia
Acute blood loss anemia.
Hgb 7.8-transfused 3 units->9.0-->9.4
Recent hospitalization with diverticular bleed involving colonoscopy 08/27 with diverticular clip with acute blood loss anemia required transfusion total of 4 units transfused.
Other conditions:
GERD/dyspepsia
Prostate cancer managed with watchful waiting
Dyslipidemia
Vitamin D deficiency
Aortic Stenosis
(correlation with angioectasia, could pt have along with diverticulosis)
Plan:
Hematochezia suspect lower GI source.
Recent colonoscopy with diverticular
Acute blood loss anemia, felt dizzy prior to admission, although hemodynamically stable. Hemoglobin down to 7.8.
Without upper GI symptoms
Normal BUN
Status post 2 units packed red blood cells transfused on 09/03, 1 unit on 09/04
CTA on 09/03 with no active bleeding.
Clinically with no active bleeding since admission with 1 small BM with remnants of maroon-colored blood
planned colonoscopy for tomorrow
Advance to clear liquid diet and monitor
GERD with history of erosive esophagitis and Sewell's
Continue bismuth, calcium carbonate, famotidine, PPI
Prostate carcinoma. Monitored by urology with watchful waiting. On Flomax.
discussed potential colon resection if continues to have recurrent bleed. Would need urologic input
Dyslipidemia. Continue statin
extensive visit with multiple questions and concerns answered
Anticipated Discharge: 24 - 48 hours
Subjective/Interval History
-
Date of Service: September 05, 2024
Awake, alert, many questions
Objective Data
-
Labs:
Laboratory Results
09/05/24 09/05/24
02:46 08:28
WBC 5.4 5.5
Hgb 9.0 L 9.4 L
Hct 27.8 L 29.4 L
Plt Count 200 234
Vital Signs:
Vital Signs
Temp Pulse Resp BP Pulse Ox
98 F 75 16 119/65 98
09/05/24 07:00 09/05/24 07:00 09/05/24 07:00 09/05/24 07:00 09/05/24 07:00
I&O
09/04/24 09/05/24 09/06/24
06:59 06:59 06:59
Intake Total 700 / 700 2810 / 2810
Balance 700 / 700 2810 / 2810
Review of Systems
-
History Source: Patient and Coordinated Provider
Constitutional: Denies Fever
EENT: Reports No Symptoms Reported
Respiratory: Reports No Symptoms
Cardiac: Reports No Symptoms
Abdomen/GI: Reports Bloody Stools (recurrent LGI bleeding); Denies Abdominal Pain
Physical Exam
-
General: Well Developed and No Apparent Distress
HEENT: Normocephalic, Atraumatic and Moist Mucous Membranes
Respiratory: Clear to Auscultation
Cardiac: Regular Rhythm, S1/S2 and Murmur (3/6 m); Negative Rub or Gallop
GI: Soft, Nontender, Nondistended and Normal Bowel Sounds; Negative Organomegaly
Rectal: Deferred by Provider
Musculoskeletal: No Clubbing, No Cyanosis and No Edema
Skin: Negative Rash
Neuro: Nonfocal/Grossly Intact
[2024-09-05 15:00] VITALS: BP 119/72
--- NOTE | 2024-09-05 15:14 | PTCARENOTE ---
Completed colonoscopy prep this morning. Continued bloody bowel movements until end of prep then clear. Pt continues ambulating halls, reports feeling okay - but denies lightheaded or dizzy. Last Hgb 9.4
[2024-09-05 16:51] LABS: Hematocrit 24.6 % (39.0-52.0); Hemoglobin 8.5 g/dL (13.0-18.0); Mean Corp Hgb Conc. 34.6 g/dL (33.0-37.0); Mean Corpuscular Hgb 30.8 pg (27.0-31.0); Mean Corpuscular Volume 89.1 fL (80.0-94.0); Mean Platelet Volume 9.2 fL (7.4-10.4); Platelet Count 204 10^3/uL (130-400); Red Blood Cell Count 2.76 10^6/uL (4.70-6.10); Red Cell Dist. Width 14.9 % (11.5-14.5); White Blood Cell Count 4.8 10^3/uL (4.8-10.8)
[2024-09-05 18:26] VITALS: BMI 25.8
[2024-09-05] MEDS: ZYRTEC 10 MG PO (20:53)
[2024-09-05] MEDS: PEPCID 40 MG PO (20:53)
[2024-09-05] MEDS: GAVILAX PO (21:58)
[2024-09-05 23:00] VITALS: BP 129/62
[2024-09-06 06:27] LABS: Hemoglobin 9.2 g/dL (13.0-18.0); Mean Corp Hgb Conc. 31.7 g/dL (33.0-37.0); Mean Corpuscular Hgb 29.7 pg (27.0-31.0); Mean Corpuscular Volume 93.5 fL (80.0-94.0); Mean Platelet Volume 9.3 fL (7.4-10.4); Platelet Count 250 10^3/uL (130-400); Red Cell Dist. Width 15.2 % (11.5-14.5); White Blood Cell Count 5.8 10^3/uL (4.8-10.8)
[2024-09-06 07:00] VITALS: BP 125/68
[2024-09-06] MEDS: FIBERCON 625 MG PO (08:31)
[2024-09-06] MEDS: VITAMIN C 1000 MG PO (08:31)
[2024-09-06] MEDS: VISBIOME 1 CAP PO (08:31)
[2024-09-06] MEDS: FLOMAX 0.4 MG PO (08:31)
[2024-09-06] MEDS: FEOSOL 325 MG PO (08:31)
[2024-09-06] MEDS: CRESTOR 5 MG PO (08:31)
[2024-09-06] MEDS: PROTONIX 40 MG PO (08:31)
[2024-09-06] MEDS: VITAMIN B-12 3000 MCG PO (08:32)
[2024-09-06] MEDS: VITAMIN D3 (cholecalciferol) 25 MCG PO (08:33)
[2024-09-06 13:27] VITALS: BP 126/71; BP_SYST 27
[2024-09-06 13:42] VITALS: BP 120/69; BP_SYST 24
[2024-09-06 13:55] VITALS: BP 134/63; BP_SYST 22
[2024-09-06 15:00] VITALS: BP 105/73
--- NOTE | 2024-09-06 15:59 | W.PN.HOSP.TC ---
Today's Communication/Plan
-
Ferrlecit x 1 tonight, spoke to pharm, okay to give tonight
Assessment / Plan
Assessment / Plan
Impression:
Hematochezia
Acute blood loss anemia.
Hgb 7.8-transfused 3 units->9.0-->9.4-->9.2
Recent hospitalization with diverticular bleed involving colonoscopy 08/27 with diverticular clip with acute blood loss anemia required transfusion total of 4 units transfused.
Other conditions:
GERD/dyspepsia
Prostate cancer managed with watchful waiting
Dyslipidemia
Vitamin D deficiency
Aortic Stenosis
(correlation with angioectasia, could pt have along with diverticulosis)
Plan:
Hematochezia suspect lower GI source.
Recent colonoscopy with diverticular
Acute blood loss anemia, felt dizzy prior to admission, although hemodynamically stable. Hemoglobin down to 7.8.
Without upper GI symptoms
Normal BUN
Status post 2 units packed red blood cells transfused on 09/03, 1 unit on 09/04
CTA on 09/03 with no active bleeding.
Clinically with no active bleeding since admission with 1 small BM with remnants of maroon-colored blood
colonoscopy 09/06:Non-bleeding internal hemorrhoids were found during retroflexion. The
hemorrhoids were medium-sized.
Multiple diverticula were found in the entire colon.
The exam was otherwise without abnormality.
The terminal ileum appeared normal.
2 old clips seen in sigmoid
Scant hematin in ascending colon but no active bleeding seen.
Advanced from clear liquid diet to low residue. If tolerates, and no further bleed, potential dc tomorrow. Should follow up with CRS as well as GI
will order 1 dose of IV Fe now
recheck CBC in AM
GERD with history of erosive esophagitis and Sewell's
Continue bismuth, calcium carbonate, famotidine, PPI
Prostate carcinoma. Monitored by urology with watchful waiting. On Flomax.
discussed potential colon resection if continues to have recurrent bleed. Would need urologic input
Dyslipidemia. Continue statin
in room, reviewed multiple concerns
Anticipated Discharge: Within 24 hours
Subjective/Interval History
-
Date of Service: September 06, 2024
Generally feels better, but is most concerned if should have another bleeding episode
Objective Data
-
Labs:
Laboratory Results
09/06/24
06:07
WBC 5.8
Hgb 9.2 L
Hct 29.0 L
Plt Count 250 D
Vital Signs:
Vital Signs
Temp Pulse Resp BP Pulse Ox
97.9 F 81 16 105/73 95
09/06/24 15:00 09/06/24 15:00 09/06/24 15:00 09/06/24 15:00 09/06/24 15:00
I&O
09/05/24 09/06/24 09/07/24
06:59 06:59 06:59
Intake Total 2810 / 2810 480 / 480
Balance 2810 / 2810 480 / 480
Review of Systems
-
History Source: Patient and Coordinated Provider
Constitutional: Denies Fever
EENT: Reports No Symptoms Reported
Respiratory: Reports No Symptoms
Cardiac: Reports No Symptoms
Abdomen/GI: Reports Bloody Stools (recurrent LGI bleeding, none past 24 hrs); Denies Abdominal Pain
Physical Exam
-
General: Well Developed and No Apparent Distress
HEENT: Normocephalic, Atraumatic and Moist Mucous Membranes
Respiratory: Clear to Auscultation
Cardiac: Regular Rhythm, S1/S2 and Murmur (3/6 m); Negative Rub or Gallop
GI: Soft, Nontender, Nondistended and Normal Bowel Sounds; Negative Organomegaly
Rectal: Deferred by Provider
Musculoskeletal: No Clubbing, No Cyanosis and No Edema
Skin: Negative Rash
Neuro: Nonfocal/Grossly Intact
[2024-09-06] MEDS: FERRLECIT 110 MG IV (16:30)
[2024-09-06] MEDS: PEPCID 40 MG PO (21:27)
[2024-09-06] MEDS: ZYRTEC 10 MG PO (21:27)
[2024-09-06 23:35] VITALS: BP 120/65
[2024-09-07 06:31] LABS: Hematocrit 27.4 % (39.0-52.0); Hemoglobin 8.9 g/dL (13.0-18.0); Mean Corp Hgb Conc. 32.5 g/dL (33.0-37.0); Mean Corpuscular Hgb 30.6 pg (27.0-31.0); Mean Corpuscular Volume 94.2 fL (80.0-94.0); Mean Platelet Volume 9.7 fL (7.4-10.4); Platelet Count 243 10^3/uL (130-400); Red Blood Cell Count 2.91 10^6/uL (4.70-6.10); Red Cell Dist. Width 15.1 % (11.5-14.5); White Blood Cell Count 5.6 10^3/uL (4.8-10.8)
[2024-09-07 07:25] VITALS: BP 146/75
[2024-09-07] MEDS: FLOMAX 0.4 MG PO (07:50)
[2024-09-07] MEDS: FIBERCON 625 MG PO (07:50)
[2024-09-07] MEDS: VITAMIN C 1000 MG PO (07:50)
[2024-09-07] MEDS: CRESTOR 5 MG PO (07:50)
[2024-09-07] MEDS: PROTONIX 40 MG PO (07:50)
[2024-09-07] MEDS: VISBIOME 1 CAP PO (07:51)
[2024-09-07] MEDS: FEOSOL 325 MG PO (07:51)
[2024-09-07] MEDS: VITAMIN B-12 3000 MCG PO (07:51)
[2024-09-07] MEDS: VITAMIN D3 (cholecalciferol) 25 MCG PO (07:51)
--- NOTE | 2024-09-07 14:19 | W.PN.HOSP.TC ---
Today's Communication/Plan
-
CBC tomorrow
Assessment / Plan
Assessment / Plan
Impression:
Hematochezia
Acute blood loss anemia.
Hgb 7.8-transfused 3 units->9.0-->9.4-->9.2-->8.9
Recent hospitalization with diverticular bleed involving colonoscopy 08/27 with diverticular clip with acute blood loss anemia required transfusion total of 4 units transfused.
Other conditions:
GERD/dyspepsia
Prostate cancer managed with watchful waiting
Dyslipidemia
Vitamin D deficiency
Aortic Stenosis
(correlation with angioectasia, could pt have along with diverticulosis)
Plan:
Hematochezia suspect lower GI source.
Recent colonoscopy with diverticular
Acute blood loss anemia, felt dizzy prior to admission, although hemodynamically stable. Hemoglobin down to 7.8.
Without upper GI symptoms
Normal BUN
Status post 2 units packed red blood cells transfused on 09/03, 1 unit on 09/04
CTA on 09/03 with no active bleeding.
Clinically with no active bleeding since admission with 1 small BM with remnants of maroon-colored blood
colonoscopy 09/06:Non-bleeding internal hemorrhoids were found during retroflexion. The
hemorrhoids were medium-sized.
Multiple diverticula were found in the entire colon.
The exam was otherwise without abnormality.
The terminal ileum appeared normal.
2 old clips seen in sigmoid
Scant hematin in ascending colon but no active bleeding seen.
Advanced from clear liquid diet to low residue. If tolerates, and no further bleed, potential dc tomorrow. Should follow up with CRS as well as GI
received IV Fe 09/06
recheck CBC in AM
GERD with history of erosive esophagitis and Sewell's
Continue bismuth, calcium carbonate, famotidine, PPI
Prostate carcinoma. Monitored by urology with watchful waiting. On Flomax.
discussed potential colon resection if continues to have recurrent bleed. Would need urologic input
Dyslipidemia. Continue statin
Discussed potential dc today, he is very concerned about going home and wishes to wait 1 more day, until he has a BM. This is not unreasonable, will hold dc and recheck CBC tomorrow
Anticipated Discharge: Within 24 hours
Subjective/Interval History
-
Date of Service: September 07, 2024
Has not had a BM since his colonoscopy prep and is very concerned he could have recurrent bleeding when he does have a BM
Objective Data
-
Labs:
Laboratory Results
09/07/24
05:28
WBC 5.6
Hgb 8.9 L
Hct 27.4 L
Plt Count 243
Vital Signs:
Vital Signs
Temp Pulse Resp BP Pulse Ox
97.7 F 76 17 146/75 97
09/07/24 07:25 09/07/24 07:25 09/07/24 07:25 09/07/24 07:25 09/07/24 07:25
I&O
09/06/24 09/07/24 09/08/24
06:59 06:59 06:59
Intake Total 480 / 480 1540 / 1540
Balance 480 / 480 1540 / 1540
Review of Systems
-
History Source: Patient and Coordinated Provider
Constitutional: Denies Fever
EENT: Reports No Symptoms Reported
Respiratory: Reports No Symptoms
Cardiac: Reports No Symptoms
Abdomen/GI: Reports Bloody Stools (recurrent LGI bleeding, none past 48 hrs); Denies Abdominal Pain
Physical Exam
-
General: Well Developed and No Apparent Distress
HEENT: Normocephalic, Atraumatic and Moist Mucous Membranes
Respiratory: Clear to Auscultation
Cardiac: Regular Rhythm, S1/S2 and Murmur (3/6 m); Negative Rub or Gallop
GI: Soft, Nontender, Nondistended and Normal Bowel Sounds; Negative Organomegaly
Rectal: Deferred by Provider
Musculoskeletal: No Clubbing, No Cyanosis and No Edema
Skin: Negative Rash
Neuro: Nonfocal/Grossly Intact
[2024-09-07 15:30] VITALS: BP 130/64
--- NOTE | 2024-09-07 16:00 | CM ---
CM reviewed- ADC tomorrow
Per nursing notes, pt maintains independence
No dc needs anticipated
Discharge Disposition- home, no needs anticipated
[2024-09-07] MEDS: ZYRTEC 10 MG PO (22:20)
[2024-09-07] MEDS: PEPCID 40 MG PO (22:20)
[2024-09-07 23:00] VITALS: BP 149/63
[2024-09-08 05:56] LABS: Hematocrit 27.1 % (39.0-52.0); Hemoglobin 8.9 g/dL (13.0-18.0); Mean Corp Hgb Conc. 32.8 g/dL (33.0-37.0); Mean Corpuscular Hgb 30.6 pg (27.0-31.0); Mean Corpuscular Volume 93.1 fL (80.0-94.0); Mean Platelet Volume 9.5 fL (7.4-10.4); Platelet Count 238 10^3/uL (130-400); Red Blood Cell Count 2.91 10^6/uL (4.70-6.10); Red Cell Dist. Width 15.1 % (11.5-14.5); White Blood Cell Count 5.4 10^3/uL (4.8-10.8)
[2024-09-08 07:50] VITALS: BP 137/71
[2024-09-08] MEDS: CRESTOR 5 MG PO (08:16)
[2024-09-08] MEDS: PROTONIX 40 MG PO (08:16)
[2024-09-08] MEDS: FIBERCON 625 MG PO (08:16)
[2024-09-08] MEDS: VITAMIN C 1000 MG PO (08:17)
[2024-09-08] MEDS: VITAMIN B-12 3000 MCG PO (08:17)
[2024-09-08] MEDS: FEOSOL 325 MG PO (08:17)
[2024-09-08] MEDS: VITAMIN D3 (cholecalciferol) 25 MCG PO (08:17)
[2024-09-08] MEDS: FLOMAX 0.4 MG PO (08:17)
[2024-09-08] MEDS: VISBIOME 1 CAP PO (08:17)
--- NOTE | 2024-09-08 09:53 | W.PN.HOSP.TC ---
Today's Communication/Plan
-
dc to home
Assessment / Plan
Assessment / Plan
Impression:
Hematochezia
Acute blood loss anemia.
Hgb 7.8-transfused 3 units->9.0-->9.4-->9.2-->8.9-->8.9
Recent hospitalization with diverticular bleed involving colonoscopy 08/27 with diverticular clip with acute blood loss anemia required transfusion total of 4 units transfused. Repeat colo 09/06
Other conditions:
GERD/dyspepsia
Prostate cancer managed with watchful waiting
Dyslipidemia
Vitamin D deficiency
Aortic Stenosis
(correlation with angioectasia, could pt have along with diverticulosis)
Plan:
Hematochezia suspect lower GI source.
Recent colonoscopy with diverticular
Acute blood loss anemia, felt dizzy prior to admission, although hemodynamically stable. Hemoglobin down to 7.8.
Without upper GI symptoms
Normal BUN
Status post 2 units packed red blood cells transfused on 09/03, 1 unit on 09/04
CTA on 09/03 with no active bleeding.
Clinically with no active bleeding since admission with 1 small BM with remnants of maroon-colored blood
colonoscopy 09/06:Non-bleeding internal hemorrhoids were found during retroflexion. The
hemorrhoids were medium-sized.
Multiple diverticula were found in the entire colon.
The exam was otherwise without abnormality.
The terminal ileum appeared normal.
2 old clips seen in sigmoid
Scant hematin in ascending colon but no active bleeding seen.
Advanced from clear liquid diet to low residue. If tolerates, and no further bleed, potential dc tomorrow. Should follow up with CRS as well as GI
received IV Fe 09/06
GERD with history of erosive esophagitis and Sewell's
Continue bismuth, calcium carbonate, famotidine, PPI
Prostate carcinoma. Monitored by urology with watchful waiting. On Flomax.
discussed potential colon resection if continues to have recurrent bleed. Would need urologic input
Dyslipidemia. Continue statin
dc now
see dictated note
More than 30 minutes spent in discharge including
Final examination of the patient
Summarizing hospital stay
Instructions for continuing care to all relevant caregivers
Preparation of discharge records, prescriptions, and referral forms
Total time spent (in minutes): 45
Anticipated Discharge: Today
Subjective/Interval History
-
Date of Service: September 08, 2024
Feels well, had normal nonbloody BM x 2 late yesterday
Objective Data
-
Labs:
Laboratory Results
09/08/24
05:33
WBC 5.4
Hgb 8.9 L
Hct 27.1 L
Plt Count 238
Vital Signs:
Vital Signs
Temp Pulse Resp BP Pulse Ox
97.7 F 69 17 137/71 99
09/08/24 07:50 09/08/24 07:50 09/08/24 07:50 09/08/24 07:50 09/08/24 07:50
I&O
09/07/24 09/08/24 09/09/24
06:59 06:59 06:59
Intake Total 1540 / 1540 1200 / 1200
Balance 1540 / 1540 1200 / 1200
Review of Systems
-
History Source: Patient and Coordinated Provider
Constitutional: Denies Fever
EENT: Reports No Symptoms Reported
Respiratory: Reports No Symptoms
Cardiac: Reports No Symptoms
Abdomen/GI: Reports Bloody Stools (recurrent LGI bleeding, none past 72 hrs); Denies Abdominal Pain
Physical Exam
-
General: Well Developed and No Apparent Distress
HEENT: Normocephalic, Atraumatic and Moist Mucous Membranes
Respiratory: Clear to Auscultation
Cardiac: Regular Rhythm, S1/S2 and Murmur (3/6 m); Negative Rub or Gallop
GI: Soft, Nontender, Nondistended and Normal Bowel Sounds; Negative Organomegaly
Rectal: Deferred by Provider
Musculoskeletal: No Clubbing, No Cyanosis and No Edema
Skin: Negative Rash
Neuro: Nonfocal/Grossly Intact
--- NOTE | 2024-09-08 10:21 | CM ---
CM reviewed pt with Dr Joshi- dc today
Bedside meeting with pt- no dc needs noted
IMM verbally completed, copy provided
He has alerted spouse of dc
Discharge Disposition- home, no needs- spouse transport
--- NOTE | 2024-09-08 11:08 | W.DS.TRANS ---
DC Summary - [facility]
-
Discharge Instructions:
Discharge Diagnosis/Procedures Lower GI Bleed
Diet Low Fiber
Activity As tolerated
Driving Restrictions As prior to admission
Bathing Restrictions None
Blood Work CBC in 1-2 weeks
Instructions:
Stand-Alone Forms:
Changes to Home Medications: Yes
Discharge Medications:
DC Medications w/original date entered in [facility] [employer] [facility]
Lactobac no.2-Bifidobac no.1-S. thermo 112.5 billion cell capsule (Visbiome) 1 cap PO DAILY probiotic 08/25/24
acetaminophen 325 mg tablet (Tylenol) 650 mg PO Q4HPRN PRN mild pain 08/25/24
ascorbic acid (vitamin C) 1,000 mg tablet (Vitamin C) 1,000 mg PO DAILY Supplement 08/25/24
calcium carbonate (Tums) 900 mg PO BIDPRN PRN gerd 08/25/24
cyanocobalamin (vitamin B-12) 3,000 mcg capsule 3,000 mcg PO DAILY Supplement 08/25/24
losartan 100 mg tablet 100 mg PO DAILY Blood Pressure 08/25/24
rosuvastatin 5 mg tablet (Crestor) 5 mg PO DAILY High Cholesterol 08/25/24
tamsulosin 0.4 mg capsule (Flomax) 0.4 mg PO DAILY Urinary Issue 08/25/24
pantoprazole 40 mg tablet,delayed release 40 mg PO DAILY 4 weeks #28 tabs 08/27/24
cetirizine 10 mg capsule 10 mg PO HS 08/30/24
cholecalciferol (vitamin D3) 25 mcg (1,000 unit) tablet 25 mcg PO DAILY vit d Def #0 tabs 08/31/24
Home Medication Changes
stop oral iron
no NSAID's
Pending Results: No
== END 2024-09-08 11:26 | disposition home or self-care (01) | DRG 378 ==
LOC: 3 WEST ACU 17:18
PROVIDERS: Emergency Medicine; Internal Medicine; Internal Medicine Gastroenterology; Nurse Practitioner Family; ADMITTING PHYSICIAN Hospitalist; ATTENDING PHYSICIAN Internal Medicine; CONSULT PHYSICIAN Internal Medicine Gastroenterology; EMERGENCY PHYSICIAN Emergency Medicine; FAMILY PHYSICIAN Orthopaedic Surgery
PROC: 30233N1 Transfusion of Nonautologous Red Blood Cells into Peripheral Vein, Percutaneous Approach (ICD-10-PCS; 2024-09-03)
PROC: 0DJD8ZZ Inspection of Lower Intestinal Tract, Via Natural or Artificial Opening Endoscopic (ICD-10-PCS; 2024-09-06)
DX: K57.31 Diverticulosis of large intestine without perforation or abscess with bleeding (principal); D62 Acute posthemorrhagic anemia; K57.91 Diverticulosis of intestine, part unspecified, without perforation or abscess with bleeding; Z85.46 Personal history of malignant neoplasm of prostate; E78.00 Pure hypercholesterolemia, unspecified; I10 Essential (primary) hypertension; Z88.0 Allergy status to penicillin; K21.9 Gastro-esophageal reflux disease without esophagitis; I35.0 Nonrheumatic aortic (valve) stenosis; K64.8 Other hemorrhoids; J30.9 Allergic rhinitis, unspecified; Z96.659 Presence of unspecified artificial knee joint; K59.00 Constipation, unspecified; Z79.899 Other long term (current) drug therapy; E55.9 Vitamin D deficiency, unspecified; K22.70 Barrett's esophagus without dysplasia
CPT/HCPCS: 74174; 80048; 80053; 85018; 85025; 85027; 86850; 86900; 86901; 86920; 96360; 99284; J2916; P9016; Q9967

== ENCOUNTER 2024-10-15 06:24 | Day surgery (SDC) | payer MEDICARE, BC, SELFPAY | END 2024-10-15 09:47 | disposition home or self-care (01) | LOC: GI 06:24 | PROVIDERS: ATTENDING PHYSICIAN Internal Medicine Gastroenterology | DX: R12 Heartburn (principal); K44.9 Diaphragmatic hernia without obstruction or gangrene; K31.89 Other diseases of stomach and duodenum; K20.90 Esophagitis, unspecified without bleeding; K22.89 Other specified disease of esophagus; K22.70 Barrett's esophagus without dysplasia; Z13.810 Encounter for screening for upper gastrointestinal disorder | CPT/HCPCS: 43239; 88305; 88342 ==

== ENCOUNTER → 2025-06-03 09:50 | Outpatient (REF) | payer MEDICARE, BC, SELFPAY | LOC: MRI 3T 09:50 | PROVIDERS: ATTENDING PHYSICIAN Urology; FAMILY PHYSICIAN Family Medicine | DX: C61 Malignant neoplasm of prostate (principal) | CPT/HCPCS: 72197; A9575 ==

== ENCOUNTER → 2025-06-16 11:35 | Outpatient (REF) | payer MEDICARE, BC, SELFPAY ==
[2025-06-16 13:49] LABS: Hematocrit 43.6 % (39.0-52.0); Hemoglobin 14.2 g/dL (13.0-18.0); Mean Corp Hgb Conc. 32.6 g/dL (33.0-37.0); Mean Corpuscular Volume 83.5 fL (80.0-94.0); Platelet Count 215 10^3/uL (130-400); Red Cell Dist. Width 13.0 % (11.5-14.5)
[2025-06-16 14:02] LABS: Blood Urea Nitrogen 15 mg/dl (9-20); Calcium 9.0 mg/dl (8.4-10.2); Carbon Dioxide 27 mmol/L (22-30); Chloride 104 mmol/L (98-107); Glucose 98 mg/dl (70-99); Potassium 4.5 mmol/L (3.5-5.1); Sodium 137 mmol/L (135-145); eGFR > 60.00
== END ==
LOC: SDSPAT 11:35
PROVIDERS: ATTENDING PHYSICIAN Urology; FAMILY PHYSICIAN Family Medicine
DX: Z01.818 Encounter for other preprocedural examination (principal)
CPT/HCPCS: 36415; 80048; 85027; 93005

== ENCOUNTER 2025-06-22 06:03 | Day surgery (SDC) | payer MEDICARE, BC, SELFPAY ==
[2025-06-16 14:12] VITALS: BMI 27.2
[2025-06-22 06:46] VITALS: BMI 27.2
[2025-06-22 06:49] VITALS: BMI 27.2
[2025-06-22] MEDS: NORMOSOL-R/PLASMALYTE-A 1000 IV (07:08)
[2025-06-22 07:09] VITALS: BP 169/92
[2025-06-22 08:19] VITALS: BP 139/83
[2025-06-22 08:30] VITALS: BP 163/99
[2025-06-22 08:45] VITALS: BP 151/86
[2025-06-22 09:00] VITALS: BP 163/90
== END 2025-06-22 09:15 | disposition home or self-care (01) ==
LOC: SDS 06:03
PROVIDERS: ATTENDING PHYSICIAN Urology; FAMILY PHYSICIAN Family Medicine
DX: C61 Malignant neoplasm of prostate (principal)
CPT/HCPCS: 55700; 76998; 88305